=== PATIENT | female | born 1980 | race Caucasian/White ===

== ENCOUNTER 2023-04-09 12:43 | Outpatient (REF) | payer MEDICARE, OTHER, SELFPAY ==
[2023-04-09 14:17] LABS: Abs Immature Grans 0.07 10^3/uL (0.0-0.06); Absolute Basophil Count 0.09 10^3/uL (0.0-0.2); Absolute Lymphocyte Count 2.28 10^3/uL (1.2-3.4); Basophils % 0.7; Eosinophils % 1.5; HCT 44.6 % (36.0-46.0); HGB 14.2 g/dL (11.2-15.7); Immature Grans % 0.6; Lymphocytes % 18.6; MCH 28.3 pg (27.0-33.0); MCHC 31.8 % (32.0-36.0); MCV 89 fL (80-95); MPV 11.2 fL (8.0-11.0); Neutrophils % 72.6; Platelet Count 303 10^3/uL (130-400); RBC 5.01 10^6/uL (3.93-5.22); RDW 13.6 % (11.7-14.6); RDW-SD 44.6 fL; WBC 12.26 10^3/uL (4.4-10.8)
[2023-04-09 14:20] LABS: Absolute Eosinophil Count 0.18 10^3/uL (0.0-0.7); Absolute Monocyte Count 0.74 10^3/uL (0.1-0.8)
[2023-04-10 08:13] LABS: IgE 10 IU/mL (<158)
[2023-04-13 23:19] LABS: Cat Epithelium IgE 4.87 kU/L (<0.70); Cockroach IgE 0.13 kU/L (<0.70); Dog Dander IgE 0.38 kU/L (<0.70); House Dust/Greer Lab, IgE 1.73 kU/L (<0.70)
[2023-04-15 08:27] LABS: Alter tenuis/alternata IgG 2.1 mcg/mL (<12.0); Aspergillus fumigatus IgG 4.6 mcg/mL (<46.0); Aureobasidium pullulans IgG <2.0 mcg/mL (<18.0); CLASS 0; Laceyella sacchari IgG 7.5 mcg/mL (<25.0); Micropolyspora faeni IgG <2.0 mcg/mL (<5.0); Parrot Australian Feathers IgE <0.10 kU/L (<0.35); Penicillium Chrysogenum IgG 3.4 mcg/mL (<22.0); Phoma betae IgG <2.0 mcg/mL (<8.0)
== END 2023-04-09 12:44 | disposition home or self-care (01) ==
LOC: LBN 12:43
PROVIDERS: PCP Physician Assistant Medical; Visit Provider Student in an Organized Health Care Education/Training Program
DX: J45.909 Unspecified asthma, uncomplicated (principal); Z01.82 Encounter for allergy testing
CPT/HCPCS: 36415; 86001; 82785; 85025; 86003; 86787

== ENCOUNTER 2023-04-28 06:12 | Day surgery (SDC) | payer MEDICARE, OTHER, SELFPAY ==
[2023-04-28] VITALS (9 sets, daily range): BP systolic 131–145; BP diastolic 52–93; PULSE 85–99; RESP 16–20; TEMP 36.4–36.7; O2SAT 98–100; BMI 31.4
[2023-04-28] MEDS: Lactated Ringers 1,000 ML 80 ML IV (06:54)
--- NOTE | 2023-04-28 07:03 | W.ANESPRE ---
General Info Date of Service Date Performed: 04/28/23 Height: 5 ft Weight: 73 kg Body Mass Index (BMI): 31.4 Surgical Procedure: Operation Date: 04/28/23 07:40 Proposed Procedure Side Surgeon p Bronchoscopy w/KHAI Guadalupe MD Meds Allergies and Home Medications Allergies Allergy/AdvReac Type Severity Reaction Status Date / Time animal dander Allergy Verified 04/28/23 06:27 house dust Allergy Verified 04/28/23 06:27 phenazopyridine Allergy Verified 04/28/23 06:27 sulfa drugs AdvReac Unknown nausea and Uncoded 04/28/23 06:27 vomiting Home Medication Medication Instructions Recorded aspirin 81 mg capsule 81 mg PO Q4H 12/10/22 bupropion HCl 300 mg 24 hr tablet, 300 mg PO DAILY 12/10/22 extended release (Wellbutrin XL) ferrous sulfate 325 mg (65 mg 325 mg PO DAILY 12/10/22 iron) tablet ibuprofen 200 mg tablet 200 mg PO Q6H PRN 12/10/22 lamotrigine 25 mg tablet (Lamictal) 50 mg PO DAILY 12/10/22 multivit with min-folic acid 1 tab PO DAILY 12/10/22 [Adult One Daily Multivitamin] ondansetron 8 mg disintegrating 8 mg PO DAILY 12/10/22 tablet pyridoxine (vitamin B6) 100 mg 100 mg PO DIRECTED 12/10/22 tablet (Vitamin B-6) sertraline 100 mg tablet 100 mg PO DAILY 12/10/22 fluticasone propionate 50 2 spray intranasal DAILY 30 days 12/23/22 mcg/actuation nasal #16 grams spray,suspension (Flonase Allergy Relief) celecoxib 400 mg capsule (Celebrex) 400 mg PO DAILY 03/17/23 clotrimazole 1 % topical cream 1 applic topical TID 03/17/23 metoprolol succinate 25 mg 25 mg PO DIRECTED 03/17/23 tablet,extended release 24 hr albuterol sulfate 90 mcg/actuation 2 puff inhalation Q4H PRN 04/09/23 aerosol inhaler (ProAir HFA) shortness of breath or wheezing #8.5 grams fluticasone propionate 230 2 puff inhalation BID #12 grams 04/09/23 mcg-salmeterol 21 mcg/actuation HFA inhaler (Advair HFA) Current Visit Medications: Current Medications Generic Name Dose Route Start Last Admin Trade Name Freq PRN Reason Stop Dose Admin Albuterol/Ipratropium 3 ml 04/28/23 06:42 Albuterol/Ipratropium 3 Ml Upd Vial UPD 05/28/23 06:41 Q2H PRN PRN Ringer's Solution 1,000 mls @ 80 mls/hr 04/28/23 06:00 04/28/23 06:54 IV 05/27/23 23:59 80 mls/hr INFUSION SARA Administration IV Miscellaneous Supplies 1 each 04/28/23 06:00 Iv Access IV 05/27/23 23:59 DIRECTED SARA Sodium Chloride 0 ml 04/28/23 06:00 Normal Saline Flush 10 Ml Syr IV 05/27/23 23:59 PRN PRN Sodium Chloride 0 ml 04/28/23 06:00 Normal Saline 10 Ml Vial IJ 05/27/23 23:59 DIRECTED PRN Sterile Water 0 ml 04/28/23 06:00 Water,Injection,Sterile 10 Ml Vial IJ 05/27/23 23:59 DIRECTED PRN PFSH Active Problems Active Problems: Problem Status Onset Code Asthma J45.909 Sinusitis J32.9 Chronic interstitial cystitis N30.10 GERD (gastroesophageal reflux disease) K21.9 Hypercholesterolemia E78.00 Hyperhidrosis R61 Mixed anxiety and depressive disorder F41.8 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 Spinal cord stimulator status Z96.89 Pulmonary nodule R91.1 Hemoptysis R04.2 Medical History Medical History Antinuclear factor positive Bipolar disorder Family history of alpha 1 antitrypsin deficiency Female bladder prolapse History of bulimia nervosa Left ankle pain Non-smoker Obesity Prolapse, intestine Rectal prolapse Restless legs Severe anxiety with panic Vaginal prolapse Surgical History Surgical History H/O laparoscopy History of abdominoplasty History of ankle surgery x3 History of bladder surgery Bladder stimulator in situ History of breast lift History of section History of cholecystectomy History of dilatation and curettage x3 History of hysterectomy History of nasal septoplasty History of right hip replacement Tobacco Smoking/Tobacco Use Status: Never Alcohol Alcohol Intake: current Alcohol intake frequency: holidays/special occasions only Substance Use Substance use: Never Substance use type: does not use Vital Signs and Lab Results Vital Signs Most Recent Vital Signs in EMR: Most Recent Vital Signs Temp Pulse Resp BP Pulse Ox 36.6 C 85 18 135/93 H 98 04/28/23 06:15 04/28/23 06:15 04/28/23 06:15 04/28/23 06:15 04/28/23 06:15 Lab Results Blood Type / Crossmatch: No Data to Display Complete Blood Count: White Blood Count 12.26 10^3/uL (4.4-10.8) H 04/09/23 11:20 Red Blood Count 5.01 10^6/uL (3.93-5.22) 04/09/23 11:20 Hemoglobin 14.2 g/dL (11.2-15.7) 04/09/23 11:20 Hematocrit 44.6 % (36.0-46.0) 04/09/23 11:20 Platelet Count 303 10^3/uL (130-400) 04/09/23 11:20 Complete Metabolic Panel: No Data to Display Liver Function Panel: No Data to Display Coagulation Panel: No Data to Display Cardiac Panel: No Data to Display Arterial Blood Gas: No Data to Display Venous Blood Gas: No Data to Display Pancreas Panel: No Data to Display Thyroid Panel: No Data to Display Infectious Disease: No Data to Display Blood Cultures: No Data to Display Toxicology Panel: No Data to Display Panel: No Data to Display Anesthesia Assessment and Plan Anesthesia History Personal History: No History of Anesthesia Complications Family History: No Family History of Anesthesia Complications Exercise Tolerance Exercise Tolerance: Metabolic Equivalents>4 Pertinent Negatives Pertinent Negatives: No Symptoms of GERD (current nausea), No Major Cardiovascular Symptoms or Complaints, No Major Pulmonary Symptoms or Complaints (Hemoptysis) and No History of CVA/TIA Cardiac & Pulmonary Exam Cardiac Exam: Normal S1/S2 Heart Sounds Pulmonary Exam: Clear Bilateral Breath Sounds Implantable Cardiac Device Does patient have a Pacemaker or an ICD?: No Airway Exam Known Difficult Airway: No Mallampati Class: 2 Mouth Opening: Normal (> 3cm) Thyromental Distance: Greater than 3 cm Neck Range of Motion: Full ROM Neck Circumference: Normal Teeth Condition: Normal Dentition ASA Classification ASA Score: ASA 2 Emergency Case?: No NPO Status NPO Status: NPO Clears >2 hours, Solids >8 hours Status Status: Negative HCG Anesthesia Plan Resuscitation Status: Full Code Anesthesia Technique: General Anesthesia Airway Planned: Endotracheal Tube Monitors Used: Standard Monitors
[2023-04-28] MEDS: Lidocaine 1% Multi-Dose 10 ML VIAL (07:44)
--- NOTE | 2023-04-28 07:46 | PAPNONF_PTH ---
PATIENT: Cassia Baez LOC: [facility] U#:[id number] AGE/SX: 43/F ROOM: RE04/28/[address]: Cari Guadalupe MD : 1980 BED: DIS: 04/28/2023 SPEC #: [id number] RECD: 04/28/23 13:03 STATUS: ABDULKADIR REQ #: [id number] MORENO: 04/28/23 07:[address]: Cari Guadalupe DEPT: [facility] Cytology RECD BY: Suzanne Maldonado ENTERED: 04/28/23 13:03 SP TYPE: PAPJOSEF BELTRAN DR: Dulce Bowman Tissues: 1 - BODY FLUID CYTO(NOT S/U/N/EM)[facility] Procedures: BODY FLUID CYTO(NOT SPU/UR/NIP/ENDOM)[facility] Comments: [id number] (REFRIGERATED)
[2023-04-28] MEDS: Albuterol/Ipratropium 3 ML UPD VIAL UPD (08:20)
--- NOTE | 2023-04-28 08:53 | W.ANESPOSTOP ---
Postoperative Evaluation Date, Time and Location Date Performed: 04/28/23 Time Performed: 08:53 Patient Location: PACU Vital Signs Most Recent Imported Vital Signs: Most Recent Vital Signs Temp Pulse Resp BP Pulse Ox 36.7 C 96 H 16 131/88 98 04/28/23 08:41 04/28/23 08:41 04/28/23 08:41 04/28/23 08:41 04/28/23 08:41 Assessment Mental Status: Awake (Alert & Oriented to Patient Baseline) Airway and Respiratory Function: Patent airway with normal (patient baseline) respiratory exam Cardiovascular Function: Hemodynamically Stable Hydration Status: Adequately Hydrated Nausea & Vomiting: No Nausea or Vomiting Pain: Pain is tolerable per patient Peripheral Nerve Block: Patient did not receive a nerve block
--- NOTE | 2023-04-28 09:20 | W.PM.OP ---
Date of service: 04/28/23 Time of Service: 07:30 Operative Note Operative Note PRE-OP DIAGNOSIS: Hemoptysis POST-OP DIAGNOSIS: other (Normal airway exam) Refer to Anesthesia Record Procedure Description: Bronchoscopy Indication:[Hemoptysis Procedure performed: Flexible bronchoscopy with BAL Sedation plan: General anesthesia Informed consent was obtained after the risks and benefits or the procedure were discussed. Anesthesia sedated and intubated the patient. A proper and complete OR compliant time out was performed. The therapeutic 6.2mm Olympus bronchoscope was inserted into the airways, where 3cc in total of 1% topical lidocaine was used the anesthetize the airways. The trachea was midline and without lesion or injury. The mucosa appeared normal but with some diverticuli and there were no signs of tracheomalacia. The kelechi was sharp. All bronchial subsegments were visualized within each lobe and showed a minimal degree of clear to white, easy to suction secretions. It was noted throughout the airway exam that her mucosa was very friable and easy to begin bleeding. A bronchoalveolar lavage was performed in the [place]. A total of 120cc of saline was administered with a return of 35cc. The fluid was slightly cloudy in appearance. The bronchoscope was then removed and the case terminated. The patient was taken to PACU in stable condition. Samples collected:[place] BAL, bronchial washing Testing ordered:cell diff, cytopathology, viral respiratory panel, AFB, fungal and bacterial cultures Complications:None Cari Guadalupe MD Pulmonary & Critical Care Medicine
[2023-04-28 22:46] LABS: Adenovirus DNA Result Negative (Negative); Metapneumovirus RNA Result Negative (Negative); Parainfluenza Type1 RNA Result Negative (Negative); Parainfluenza Type2 RNA Result Negative (Negative); Parainfluenza Type3 RNA Result Negative (Negative); Parainfluenza Type4 RNA Result Negative (Negative); Rhinovirus RNA Result Negative (Negative)
[2023-04-29 09:54] LABS: Lymphocytes Fluid Relative 26 %; Mono/Macrophage Fluid Relative 73 %; Neutrophils Fluid Relative 1 %
[2023-05-26 09:00] LABS: Fungus Smear No Fungi Seen
== END 2023-04-28 09:45 | disposition home or self-care (01) ==
PROVIDERS: PCP Physician Assistant Medical; Visit Provider Student in an Organized Health Care Education/Training Program
PROC: 0BJ08ZZ Inspection of Tracheobronchial Tree, Via Natural or Artificial Opening Endoscopic (ICD-10-PCS; CPT 31622; principal; 2023-04-28 07:30)
DX: R04.2 Hemoptysis (principal); J45.909 Unspecified asthma, uncomplicated; K21.9 Gastro-esophageal reflux disease without esophagitis; E78.00 Pure hypercholesterolemia, unspecified; Z79.899 Other long term (current) drug therapy
CPT/HCPCS: 31624; 80162; 87070; 87102; 87116; 87205; 87206; 87632; 88104; J1100; J2250; J2405; J7620

== ENCOUNTER → 2023-12-11 10:01 | Outpatient (BNVA) | payer MEDICARE, OTHER, SELFPAY | PROVIDERS: PCP Physician Assistant Medical; Referring Provider Physician Assistant Medical; Visit Provider Student in an Organized Health Care Education/Training Program | DX: J45.909 Unspecified asthma, uncomplicated (principal) | CPT/HCPCS: 99214 ==

== ENCOUNTER → 2024-06-06 12:59 | Outpatient (BNVA) | payer MEDICARE, OTHER, SELFPAY | PROVIDERS: PCP Physician Assistant Medical; Referring Provider Physician Assistant Medical | DX: M70.61 Trochanteric bursitis, right hip (principal); Z96.641 Presence of right artificial hip joint; G89.29 Other chronic pain | CPT/HCPCS: 99213 ==

== ENCOUNTER → 2024-06-13 02:19 | Outpatient (CLI) | payer MEDICARE, OTHER, SELFPAY ==
--- NOTE | 2024-06-13 08:20 | DI.CT_ITS ---
Exam(s) CT LOWER EXTREMITY RT WO EXAM: CT LOWER EXTREMITY RT WO CLINICAL HISTORY: PAIN, ?LOOSENING rt hip replacement,m25.551,z96.641. TECHNIQUE: Imaging Protocol: Axial computed tomography images with coronal and sagittal reformatted images were created and reviewed. CONTRAST MATERIAL: Intravenous: None COMPARISON: CR XR HIP MIN 2V RT from 04/30/2024 FINDINGS: Bones: Components of the prosthesis appeared satisfactory. No evidence of obvious loosening. Slight irregularity at the most superior aspect of the greater trochanter noted. No acute fractures eviden t. No evidence of osteomyelitis. There is no abnormal fluid collection in the musculature surroundi ng the hip. Right sacroiliac joint appears unremarkable. Subcutaneous right buttock stimulator noted. IMPRESSION: No obvious loosening of the right hip prosthesis. RADIATION DOSE DELIVERED: Total DLP DATA REPOSITORY: All CT scans at this facility are submitted to the National Radiology Data Registry (NRDR) Dose Index Registry (DIR) with the [employer] ([employer]). RADIATION OPTIMIZATION: All CT scans at this facility use at least one of these dose optimization te chniques: automated exposure control; mA and/or kV adjustment per patient size (includes targeted exa ms where dose is matched to clinical indication); or iterative reconstruction.
== END ==
PROVIDERS: PCP Physician Assistant Medical; Visit Provider Student in an Organized Health Care Education/Training Program
DX: M25.551 Pain in right hip (principal); G89.29 Other chronic pain; Z96.641 Presence of right artificial hip joint
CPT/HCPCS: 73700

== ENCOUNTER 2024-06-27 02:58 | Outpatient (CLI) | payer MEDICARE, OTHER, SELFPAY ==
--- NOTE | 2024-06-27 05:45 | DI.NM_ITS ---
Exam(s) NM BONE SCAN 3 PHASE EXAM: NM BONE SCAN 3 PHASE CLINICAL HISTORY: PAIN, ?LOOSENING prosthetic device,m25.551,z96.641. TECHNIQUE: Injected Dose: 25 mCi Tc-99m MDP COMPARISON: CR XR HIP MIN 2V RT from 04/30/[address] LOWER EXTREMITY RT WO from 06/13/2024 FINDINGS: Perfusion: Symmetric. Blood Pool: Minimally increased activity around the right hip. Delayed: No focal area of intense suspicious uptake is seen. Photopenic area in the proximal right femur consistent with prosthesis. No abnormal uptake surrounding the prosthesis. Increased activity in the left foot, both AC joints as well as cervical spine, presumably related to degenerative pollard es. IMPRESSION: 1. No evidence of loosening of the right hip prosthesis. DATA REPOSITORY:
== END 2024-06-27 03:18 ==
LOC: DI 02:58
PROVIDERS: PCP Physician Assistant Medical; Visit Provider Student in an Organized Health Care Education/Training Program
DX: M25.551 Pain in right hip (principal); Z96.641 Presence of right artificial hip joint
CPT/HCPCS: 78315

== ENCOUNTER 2024-06-27 04:13 | Outpatient (CLI) | payer MEDICARE, OTHER, SELFPAY ==
[2024-06-27 09:47] LABS: ESR 5 mm/hr (0-20)
[2024-06-27 10:24] LABS: C-Reactive Protein < 0.50 mg/dL (<or=0.5)
== END 2024-06-27 04:14 | disposition home or self-care (01) ==
PROVIDERS: PCP Physician Assistant Medical; Visit Provider Student in an Organized Health Care Education/Training Program
DX: M25.551 Pain in right hip (principal); G89.29 Other chronic pain; Z96.641 Presence of right artificial hip joint
CPT/HCPCS: 36415; 85652; 78315; 86140

== ENCOUNTER → 2024-07-07 10:34 | Outpatient (BNVA) | payer MEDICARE, OTHER, SELFPAY | PROVIDERS: PCP Physician Assistant Medical; Referring Provider Physician Assistant Medical; Visit Provider Student in an Organized Health Care Education/Training Program | DX: M70.61 Trochanteric bursitis, right hip (principal); Z96.641 Presence of right artificial hip joint; G89.29 Other chronic pain | CPT/HCPCS: 20550; J1010 ==

== ENCOUNTER → 2024-08-03 13:47 | Outpatient (BNVA) | payer MEDICARE, OTHER, SELFPAY | PROVIDERS: PCP Physician Assistant Medical; Referring Provider Physician Assistant Medical; Visit Provider Student in an Organized Health Care Education/Training Program | DX: M76.31 Iliotibial band syndrome, right leg (principal); M70.61 Trochanteric bursitis, right hip; G89.29 Other chronic pain; Z96.641 Presence of right artificial hip joint | CPT/HCPCS: 36415; 99214 ==

== ENCOUNTER → 2024-08-03 14:56 | Outpatient (BNVA) | payer MEDICARE, OTHER, SELFPAY | PROVIDERS: PCP Physician Assistant Medical; Referring Provider Physician Assistant Medical; Visit Provider Physician Assistant Surgical | DX: J45.909 Unspecified asthma, uncomplicated (principal) | CPT/HCPCS: 36415; 99214 ==

== ENCOUNTER 2024-08-03 16:21 | Outpatient (REF) | payer MEDICARE, OTHER, SELFPAY ==
[2024-08-03 18:08] LABS: Abs Immature Grans 0.03 10^3/uL (0.0-0.06); Absolute Basophil Count 0.05 10^3/uL (0.0-0.2); Absolute Eosinophil Count 0.25 10^3/uL (0.0-0.7); Absolute Lymphocyte Count 2.01 10^3/uL (1.2-3.4); Absolute Monocyte Count 0.53 10^3/uL (0.1-0.8); Absolute Neutrophil Count 5.33 10^3/uL (1.2-6.7); Basophils % 0.6 %; HCT 45.8 % (36.0-46.0); HGB 14.3 g/dL (11.2-15.7); Immature Grans % 0.4 %; Lymphocytes % 24.5 %; MCHC 31.2 % (32.0-36.0); MCV 93 fL (80-95); MPV 11.4 fL (8.0-11.0); Monocytes % 6.5 %; Platelet Count 273 10^3/uL (130-400); RBC 4.93 10^6/uL (3.93-5.22); RDW 13.2 % (11.7-14.6); RDW-SD 45.1 fL
== END 2024-08-03 16:22 | disposition home or self-care (01) ==
LOC: LBN 16:21
PROVIDERS: PCP Physician Assistant Medical; Visit Provider Physician Assistant Surgical
DX: J45.909 Unspecified asthma, uncomplicated (principal); M25.551 Pain in right hip; G89.29 Other chronic pain; Z96.641 Presence of right artificial hip joint; M70.61 Trochanteric bursitis, right hip; M76.31 Iliotibial band syndrome, right leg
CPT/HCPCS: 85025

== ENCOUNTER → 2024-08-15 08:44 | Outpatient (BNVA) | payer MEDICARE, OTHER, SELFPAY | PROVIDERS: PCP Physician Assistant Medical; Referring Provider Physician Assistant Medical; Visit Provider Student in an Organized Health Care Education/Training Program | DX: Z96.641 Presence of right artificial hip joint (principal); G89.29 Other chronic pain; M76.31 Iliotibial band syndrome, right leg | CPT/HCPCS: 20611; J1010 ==

== ENCOUNTER 2024-08-19 03:03 | Outpatient (CLI) | payer MEDICARE, OTHER, SELFPAY ==
[2024-08-19] MEDS: Albuterol HFA 18 GM 200 PUFF INH IH (14:07)
[2024-08-19] MEDS: Inhaler, Assist Device 1 EACH MC (14:07)
[2024-08-19] MEDS: Methacholine 100 MG VIAL IH (14:07)
--- NOTE | 2024-08-23 10:53 | PFT_ITS ---
Date of service: 08/19/24 Time of Service: 11:02 Pulmonary Function Test Result Indications: Alpha 1 carrier Interpretation Spirometry: There is no baseline airflow limitation. There was a 26% decrease with admini stration of 4.0 mg/mL methacholine. Lung Volumes: There is air trapping. Diffusion Capacity: Mildly reduced diffusion Airway Pressure: Normal airways resistance. Impression Baseline air trapping and a slightly reduced diffusion. There is a positive methacholine challenge. Clinical Correlation therefore is recommended.
== END 2024-08-19 03:04 | disposition home or self-care (01) ==
LOC: RT 03:04
PROVIDERS: PCP Physician Assistant Medical; Visit Provider Student in an Organized Health Care Education/Training Program
DX: J45.909 Unspecified asthma, uncomplicated (principal); Z14.8 Genetic carrier of other disease
CPT/HCPCS: 94060; 94070; 94726; 94729; 94010; J7674

== ENCOUNTER 2024-09-01 08:51 | Day surgery (SDC) | payer MEDICARE, OTHER, SELFPAY ==
[2024-09-01] VITALS (28 sets, daily range): BP systolic 128–156; BP diastolic 71–118; PULSE 57–83; RESP 9–19; TEMP 36–36.5; O2SAT 94–100; BMI 31.8
--- NOTE | 2024-09-01 07:13 | ROE_ITS ---
Date of service: 09/01/24 Time of Service: 14:00 Operative Note Operative Note DATE OF PROCEDURE: 09/01/24 PRE-OP DIAGNOSIS: Right hip 1. Iliotibial band snapping 2. Trochanteric bursitis 3. Possible gluteal tendon tear POST-OP DIAGNOSIS: same PROCEDURE: Right hip endoscopic 1. Iiliotibial band release, CPT# 70225 2. Trochanteric bursectomy, CPT# 49450 3. Deep hardware removal, permanant knot stack greater trochanter, CPT# 69070 SURGEON: Rafael Duarte REGISTERED DENTAL ASSISTANT: Wilbur Polanco ANESTHESIA TYPE: Local By Surgeon and General LMA/ETT Refer to Anesthesia Record ESTIMATED BLOOD LOSS: 5 COMPLICATIONS: None Patient was transported to: PACU Patient's condition: stable Indications: Please see complete medical record for details. Findings: Thickened iliotibial band, abundant trochanteric bursitis. Very prominent posterior lateral greater trochanter permanent FiberWire type not stacked throu gh bone tunnels in the greater trochanter likely from prior external rotator repair after hip replacement surgery which seem to be engaging posterior laterally on scar tissue and posterior margin iliotibial band. Procedure Description: In the operating room, general anesthesia was induced. The patient was positioned supine on the [place] operating room table. All bony prominences were well-padded. Preoperative antibiotics were administered. The hip was prepped and draped in the usual sterile fashion. The correct patient, procedure, and side of the procedure were all verified prior to incision. 30 cc of 0.25% bupivacaine containing epinephrine was infiltrated about the subcutaneous tissues for the planned anterior lateral and distal anterolateral portals as well as deeply over the greater trochanter. A knife was used to incise the skin for the anterior lateral and distal anterolateral portals followed by blunt dissection subcutaneously. Under fluoroscopic guidance, a switching stick and arthroscope were inserted localizing the iliotibial band over the greater trochanter. Blunt dissection and the mechanical shaver were used to resect fat and overlying tissue about the center of the iliotibial band and carefully expose the anterior and posterior margins. Once there was adequate exposure of the IT band, the greater trochanter was again localized under fluoroscopic guidance with a spinal needle inserted through the skin down to bone. This central area was marked using the radiofrequency ablator. A [place] blade was brought in and used to create a 2 cm longitudinal incision in line with the IT band fibers as well as extending it in a cruciate fashion with 2 cm incisions anteriorly and posteriorly. The radiofrequency ablator was used to achieve hemostasis. The mechanical shaver was then used to debride the IT band released edges exposing the trochanteric bursa. The mechanical shaver was then used to excise the trochanteric bursa taking care to protect musculature about the margins of the greater trochanter as well as neurovascular structures especially posteriorly. There was excellent visualization of the vastus lateralis as well as gluteus medius confirming appropriate bursa excision. The hip was brought through range of motion including internal and external rotation and there was no impinging iliotibial band tissue or remaining pathologic bursa. The viewing and working portals were switched and appropriately while IT band release, trochanteric bursa excision, and hemostasis confirmed. There was an obvious thickening posterior lateral margin of the greater trochanter with a very prominent double type permanent suture knot stacks. It was firmly adherent to bone tunnels. It was able to be amputated and removed in entirety using pituitary rongeur's. The abductor and external rotator repair was largely intact. There was mild fraying superficially about this repair more proximally centrally. No significant gluteal medius or minimus tearing. Additional debridement was carried posterior laterally and the corresponding impinging area of the thickening along the margin of the iliotibial band and scar tissue in the peritrochanteric space. The hip was rotated again, adducted, and no mechanical impingement could be detected. Suction was used to remove fluid from the endoscopic space. The portals were closed using 3-0 Monocryl in a buried fashion. Steri-Strips were applied over the incisions followed by Xeroform, 4 x 4 gauze, an ABD pad, and secured with tape. The patient awoke from anesthesia without complication and was transferred to the recovery room in a stable condition.
--- NOTE | 2024-09-01 07:16 | PDOC.DSDIS_ITS ---
Date of service: 09/01/24 Time of Service: 15:00 Discharge Plan Disposition Patient Disposition: Home Condition: Stable Discharge Details Attending Provider: Rafael Duarte Primary Care Provider: Dulce Bowman Home Meds and New Rx's Prescriptions: New naproxen 250 mg tablet 250 - 500 mg PO BID PRN (Reason: Moderate pain) Qty: 40 0RF aspirin 81 mg tablet,delayed release (DR/EC) 81 mg PO DAILY 14 Days Qty: 14 0RF oxycodone 5 mg tablet 5 - 10 mg PO Q4H PRN (Reason: Moderate to severe pain) Qty: 18 0RF Continued fluticasone propionate [Flonase Allergy Relief] 50 mcg/actuation spray,suspension 2 spray intranasal DAILY 30 Days Qty: 16 3RF Rx Instructions: administer into each nostril fluticasone propion-salmeterol [Advair HFA] 230-21 mcg/actuation HFA aerosol inhaler 2 puff inhalation BID Qty: 12 12RF albuterol sulfate [ProAir HFA] 90 mcg/actuation HFA aerosol inhaler 2 puff inhalation Q4H PRN (Reason: shortness of breath or wheezing) Qty: 8.5 12RF Dupixent Pen 300 mg/2 mL pen injector 600 mg subcut ONCE Qty: 4 0RF Patient Comments: 09/01/24: pt has not started using this med. FFrancoisS RN Rx Instructions: as a single dose Dupixent Pen 300 mg/2 mL pen injector 300 mg subcut Q2W Qty: 4 11RF Patient Comments: 09/01/24: pt has not started using this med. F.S RN mirabegron [Myrbetriq] 25 mg tablet extended release 24 hr 25 mg PO DAILY acyclovir 400 mg tablet 400 mg PO BID methenamine hippurate [Hiprex] 1 gram tablet 1 g PO BID omeprazole 40 mg capsule,delayed release(DR/EC) 40 mg PO DAILY bupropion HCl [Wellbutrin XL] 300 mg tablet extended release 24 hr 300 mg PO DAILY ibuprofen 200 mg tablet 200 mg PO Q6H PRN lamotrigine [Lamictal] 25 mg tablet 50 mg PO DAILY ondansetron 8 mg tablet,disintegrating 8 mg PO DAILY sertraline 100 mg tablet 100 mg PO DAILY clotrimazole 1 % cream 1 applic topical TID metoprolol succinate 25 mg tablet extended release 24 hr 25 mg PO DIRECTED ropinirole 8 mg tablet extended release 24 hr 8 mg PO DAILY Discharge Instructions Additional Instructions: Surgery: Right hip endoscopy with iliotibial band release, trochanteric bursectomy, and prominent knot stack removal Activity: Weightbearing as tolerated. May use crutches or walker as needed for a few days. Gradually advance to full range of motion and activity over the next few weeks. A physical therapy prescription will be provided separately in the office at follow up if needed. Prescriptions: Aspirin 81 mg take 1 daily to prevent a blood clot for 2 weeks, starting tomorrow morning Naproxen 250 mg take 1-2 every 12 hours with a meal as needed for moderate pain Oxycodone 5 mg take 1-2 every 4-6 hours as needed for severe pain You may use qvan-gwy-ctzkwly Tylenol (acetaminophen) as needed for mild pain. These pain medications may be taken all at once or in different combinations as needed. Also, recommend Colace (docusate) as a stool softener as surgery and pain medicine cause constipation. You may try [id number] diphenhydramine (Benadryl) 25-50 mg nightly as a sleep aid Dressings: Leave dressing in place for 3 days. May then remove and leave open to air or cover incisions with Band-Aids. Leave the sticky Steri-Strips in place until they fall off or remove them after you shower. May shower after 5 days. Follow-up: 10-[address] Duarte You may take off the leg compression stockings this evening at home. You may also leave them on a few days longer if you have a history of leg swelling or edema. Let us know right away if you develop any redness, drainage, fevers, chest pain, or trouble breathing. Do not drink alcohol or drive for at least 24 hours after anesthesia. Please call the office during business hours with any questions or concerns. Stand Alone Forms: Anesthesia Discharge Inst., Ijeoma Cerrato ([facility]) Referrals: Rafael Duarte MD [ [facility] STAFF PHYSICIAN] - 09/14/24 1:30 pm Discharge Orders Discharge Orders: Discharge Order (Routine); Ordered 09/01/24 Ordered By: Wilbur Polanco DS: Diagnosis Discharge Diagnosis (1) Iliotibial band syndrome of right side: Status: Acute (2) Trochanteric bursitis, right hip: Status: Acute
[2024-09-01] MEDS: Lactated Ringers 1,000 ML 30 ML IV (10:07)
[2024-09-01] MEDS: Ondansetron 4 MG/2 ML VIAL IVP (11:35)
--- NOTE | 2024-09-01 13:34 | W.ANESPRE ---
General Info Date of Service Date Performed: 09/01/24 Height: 5 ft Weight: 73.9 kg Body Mass Index (BMI): 31.8 Surgical Procedure: Operation Date: 09/01/24 11:35 Proposed Procedure Side Surgeon p Endoscopic Iliotibial Band Release w/Trochanteric Bursectomy, Possible Gluteal Tendon Repair Right Rafael Duarte MD Actual Procedure Side Surgeon p Endoscopic Iliotibial Band Release w/Trochanteric Bursectomy, Possible Gluteal Tendon Repair Right Rafael Duarte MD Pre-Op Diagnosis Post-Op Diagnosis Iliotibial band syndrome of right side Meds Allergies and Home Medications Allergies Allergy/AdvReac Type Severity Reaction Status Date / Time animal dander Allergy Other (See Verified 09/01/24 09:50 Comment) house dust Allergy Other (See Verified 09/01/24 09:50 Comment) phenazopyridine Allergy Other (See Verified 09/01/24 09:50 Comment) sulfa drugs AdvReac Unknown nausea and Uncoded 09/01/24 09:50 vomiting Home Medication ?Medication ?Instructions ?Recorded bupropion HCl 300 mg 24 hr tablet, 300 mg PO DAILY 12/10/22 extended release (Wellbutrin XL) ibuprofen 200 mg tablet 200 mg PO Q6H PRN 12/10/22 lamotrigine 25 mg tablet (Lamictal) 50 mg PO DAILY 12/10/22 ondansetron 8 mg disintegrating 8 mg PO DAILY 12/10/22 tablet sertraline 100 mg tablet 100 mg PO DAILY 12/10/22 fluticasone propionate 50 2 spray intranasal DAILY 30 days 12/23/22 mcg/actuation nasal #16 grams spray,suspension (Flonase Allergy Relief) clotrimazole 1 % topical cream 1 applic topical TID 03/17/23 metoprolol succinate 25 mg 25 mg PO DIRECTED 03/17/23 tablet,extended release 24 hr albuterol sulfate 90 mcg/actuation 2 puff inhalation Q4H PRN 04/09/23 aerosol inhaler (ProAir HFA) shortness of breath or wheezing #8.5 grams fluticasone propionate 230 2 puff inhalation BID #12 grams 04/09/23 mcg-salmeterol 21 mcg/actuation HFA inhaler (Advair HFA) acyclovir 400 mg tablet 400 mg PO BID 07/07/24 methenamine hippurate 1 gram 1 g PO BID 07/07/24 tablet (Hiprex) mirabegron 25 mg tablet,extended 25 mg PO DAILY 07/07/24 release 24 hr (Myrbetriq) omeprazole 40 mg capsule,delayed 40 mg PO DAILY 07/07/24 release dupilumab 300 mg/2 mL subcutaneous 300 mg (2 mL) subcut Q2W #4 mL 08/04/24 pen injector (Dupixent) dupilumab 300 mg/2 mL subcutaneous 600 mg (4 mL) subcut ONCE #4 mL 08/04/24 pen injector (Dupixent) aspirin 81 mg tablet,delayed 81 mg PO DAILY Prevent blood clot 09/01/24 release 14 days #14 tabs naproxen 250 mg tablet 250 - 500 mg (1 - 2 x 250 mg) PO 09/01/24 BID PRN Moderate pain #40 tabs oxycodone 5 mg tablet 5 - 10 mg (1 - 2 x 5 mg) PO Q4H 09/01/24 PRN Moderate to severe pain #18 tabs ropinirole 8 mg tablet,extended 8 mg PO DAILY 09/01/24 release 24 hr Current Visit Medications: Current Medications Generic Name Dose Route Start Last Admin Trade Name Freq PRN Reason Stop Dose Admin Ringer's Solution 1,000 mls @ 30 mls/hr 09/01/24 06:00 09/01/24 10:07 IV 09/01/24 23:59 30 mls/hr INFUSION SARA Administration Cefazolin Sodium/Dextrose 2 gm in 50 mls @ 100 mls/hr 09/01/24 06:00 Ancef Duplex IVPB 09/01/24 23:59 PREOP SARA Tranexamic Acid/Sodium Chloride 1,000 mg in 100 mls @ 600 mls/hr 09/01/24 06:00 IVPB 09/01/24 23:59 PREOP SARA IV Miscellaneous Supplies 1 each 09/01/24 06:00 Iv Access IV 09/01/24 23:59 DIRECTED SARA Oxycodone HCl 0 mg 09/01/24 07:15 Oxycodone 5 Mg Tab PO 10/01/24 07:14 Q3H PRN PRN Pain Sodium Chloride 0 ml 09/01/24 06:00 Normal Saline Flush 10 Ml Syr IV 09/01/24 23:59 PRN PRN Sodium Chloride 0 ml 09/01/24 06:00 Normal Saline 10 Ml Vial IJ 09/01/24 23:59 DIRECTED PRN Sterile Water 0 ml 09/01/24 06:00 Water,Injection,Sterile 10 Ml Vial IJ 09/01/24 23:59 DIRECTED PRN PFSH Active Problems Active Problems: Problem Status Onset Code Iliotibial band syndrome of right side Acute M76.31 Trochanteric bursitis, right hip Acute M70.61 Chronic hip pain after total replacement of right hip joint Acute M25.551, G89.29, Z96.641 Alpha 1-antitrypsin PiMS phenotype Acute Z14.8 Hemoptysis Acute R04.2 Pulmonary nodule Acute R91.1 Spinal cord stimulator status Acute Z96.89 TMJ syndrome Acute M26.629 Mixed anxiety and depressive disorder Acute F41.8 Hyperhidrosis Acute R61 Hypercholesterolemia Acute E78.00 GERD (gastroesophageal reflux disease) Chronic K21.9 Chronic interstitial cystitis Acute N30.10 Sinusitis Acute J32.9 Asthma Chronic J45.909 Medical History Medical History Prolapse, intestine Rectal prolapse Female bladder prolapse Vaginal prolapse Severe anxiety with panic Restless legs Obesity Non-smoker Left ankle pain History of bulimia nervosa Family history of alpha 1 antitrypsin deficiency Bipolar disorder Antinuclear factor positive Surgical History Surgical History S/P placement of nerve stimulator in bladder also has spinal cord stimulator-total of 2 History of bladder surgery Bladder stimulator in situ History of ankle surgery x3 History of breast lift History of nasal septoplasty H/O laparoscopy History of right hip replacement History of dilatation and curettage x3 History of cholecystectomy History of section History of abdominoplasty History of hysterectomy Tobacco Smoking/Tobacco Use Status: Never Alcohol Alcohol Intake: current Alcohol intake frequency: holidays/special occasions only Substance Use Substance use: Never Substance use type: does not use Vital Signs and Lab Results Vital Signs Most Recent Vital Signs in EMR: Most Recent Vital Signs Temp Pulse Resp BP Pulse Ox 36.2 C L 77 16 149/93 H 99 09/01/24 09:34 09/01/24 09:34 09/01/24 09:34 09/01/24 09:34 09/01/24 09:34 Lab Results Blood Type / Crossmatch: No Data to Display Complete Blood Count: White Blood Count 8.20 10^3/uL (4.4-10.8) 08/03/24 15:30 Red Blood Count 4.93 10^6/uL (3.93-5.22) 08/03/24 15:30 Hemoglobin 14.3 g/dL (11.2-15.7) 08/03/24 15:30 Hematocrit 45.8 % (36.0-46.0) 08/03/24 15:30 Platelet Count 273 10^3/uL (130-400) 08/03/24 15:30 Complete Metabolic Panel: No Data to Display Liver Function Panel: No Data to Display Coagulation Panel: No Data to Display Cardiac Panel: No Data to Display Arterial Blood Gas: No Data to Display Venous Blood Gas: No Data to Display Pancreas Panel: No Data to Display Thyroid Panel: No Data to Display Infectious Disease: No Data to Display Blood Cultures: No Data to Display Toxicology Panel: No Data to Display Panel: No Data to Display Imaging and Studies Imaging and Studies Study information below may be from another EMR and interpreted by another provider. Please see original notes in EMR for more complete details. Pulmonary Function Summary: Date of service: 08/19/24 Time of Service: 11:02 Pulmonary Function Test Result Indications: Alpha 1 carrier Interpretation Spirometry: There is no baseline airflow limitation. There was a 26% decrease with administration of 4.0 mg/mL methacholine. Lung Volumes: There is air trapping. Diffusion Capacity: Mildly reduced diffusion Airway Pressure: Normal airways resistance. Impression Baseline air trapping and a slightly reduced diffusion. There is a positive methacholine challenge. Clinical Correlation therefore is recommended. Anesthesia Assessment and Plan Anesthesia History Personal History: No History of Anesthesia Complications Family History: No Family History of Anesthesia Complications Exercise Tolerance Exercise Tolerance: Metabolic Equivalents>4 Pertinent Negatives Pertinent Negatives: No Symptoms of GERD Cardiac & Pulmonary Exam Cardiac Exam: Normal S1/S2 Heart Sounds Pulmonary Exam: Clear Bilateral Breath Sounds Implantable Cardiac Device Does patient have a Pacemaker or an ICD?: No Airway Exam Known Difficult Airway: No Mallampati Class: 2 Mouth Opening: Normal (> 3cm) Thyromental Distance: Less than 3 cm Neck Range of Motion: Full ROM Neck Circumference: Normal Teeth Condition: Normal Dentition ASA Classification ASA Score: ASA 2 Emergency Case?: No NPO Status NPO Status: NPO Clears >2 hours, Solids >8 hours Status Status: History of Hysterectomy Anesthesia Plan Resuscitation Status: Full Code Anesthesia Technique: General Anesthesia Airway Planned: Endotracheal Tube Monitors Used: Standard Monitors
[2024-09-01] MEDS: ceFAZolin 2 GM/50 ML BAG IVPB (13:59)
[2024-09-01] MEDS: TRANEXAMIC ACID/SOD. CHL. 1,000 MG/100 ML BAG 600 MG IVPB (14:10)
[2024-09-01] MEDS: Bupivacaine 0.25% Pres-Free W/EPI 30 ML VIAL (14:47)
[2024-09-01] MEDS: EPINEPHrine 10 MG/10 ML ML (15:04)
--- NOTE | 2024-09-01 15:08 | DI.RAD_ITS ---
Exam(s) XR HIP RT IN OR EXAM: XR HIP RT IN OR CLINICAL HISTORY: Iliotibial band syndrome of right side TECHNIQUE: 2D and realtime digital imaging was performed. CONTRAST MATERIAL: Refer to procedure report. COMPARISON: CR XR HIP MIN 2V RT from 04/30/2024 FINDINGS: Fluoroscopy was provided for Dr. Duarte during the performance of a iliotibial band treatment. Plea se refer to the procedure report for complete details. Ka,r=1.1 mGy IMPRESSION: RADIATION DOSE DELIVERED: 0.0 0.0 0
[2024-09-01] MEDS: fentaNYL 100 MCG/2 ML VIAL IVP ×2 (15:41→15:52)
[2024-09-01] MEDS: HYDROmorphone 1 MG/ML SYR IVP (16:08)
--- NOTE | 2024-09-01 16:27 | W.ANESPOSTOP ---
Postoperative Evaluation Date, Time and Location Date Performed: 09/01/24 Time Performed: 16:29 Patient Location: PACU Vital Signs Most Recent Imported Vital Signs: Most Recent Vital Signs Temp Pulse Resp BP Pulse Ox 36.4 C L 65 13 151/90 H 98 09/01/24 16:11 09/01/24 16:15 09/01/24 16:15 09/01/24 16:15 09/01/24 16:15 Pain Score Most Recent Pain Score: Most Recent Pain Score Pain Level 09/01/24 15:57 Assessment Mental Status: Awake (Alert & Oriented to Patient Baseline) Airway and Respiratory Function: Patent airway with normal (patient baseline) respiratory exam Cardiovascular Function: Hemodynamically Stable Hydration Status: Adequately Hydrated Nausea & Vomiting: No Nausea or Vomiting Pain: Pain is tolerable per patient (04/18 ) Peripheral Nerve Block: Patient did not receive a nerve block Teaching Patient Teaching: Discussed Safe Use of Pain Medication Given Recent Anesthesia
[2024-09-01] MEDS: Omeprazole 20 MG CAPCR 40 MG PO (16:45)
[2024-09-01] MEDS: oxyCODONE 5 MG TAB PO (17:09)
== END 2024-09-01 18:14 | disposition home or self-care (01) ==
LOC: SUR 08:52
PROVIDERS: PCP Physician Assistant Medical; Visit Provider Student in an Organized Health Care Education/Training Program
PROC: (CPT 29863; principal; 2024-09-01 11:15)
DX: M76.31 Iliotibial band syndrome, right leg (principal); M70.61 Trochanteric bursitis, right hip
CPT/HCPCS: 20680; 27062; 27305; 73501; J0131; J0690; J1100; J1171; J2250; J2405; J2704; J3010; J3475

== ENCOUNTER → 2024-09-14 13:07 | Outpatient (BNVA) | payer MEDICARE, OTHER, SELFPAY | PROVIDERS: PCP Physician Assistant Medical; Referring Provider Physician Assistant Medical; Visit Provider Student in an Organized Health Care Education/Training Program | DX: Z47.89 Encounter for other orthopedic aftercare (principal); M76.31 Iliotibial band syndrome, right leg; G89.29 Other chronic pain | CPT/HCPCS: 99024 ==

== ENCOUNTER → 2024-10-13 09:07 | Outpatient (BNVA) | payer MEDICARE, OTHER, SELFPAY | PROVIDERS: PCP Physician Assistant Medical; Referring Provider Physician Assistant Medical; Visit Provider Student in an Organized Health Care Education/Training Program | DX: G89.29 Other chronic pain (principal); Z96.641 Presence of right artificial hip joint; T84.020A Dislocation of internal right hip prosthesis, initial encounter; M76.31 Iliotibial band syndrome, right leg | CPT/HCPCS: 99214 ==

== ENCOUNTER 2024-11-14 03:50 | Outpatient (CLI) | payer MEDICARE, OTHER, SELFPAY ==
[2024-11-14 10:49] LABS: HCT 37.8 % (36.0-46.0); HGB 11.9 g/dL (11.2-15.7); MCH 29.9 pg (27.0-33.0); MCHC 31.5 % (32.0-36.0); MCV 95 fL (80-95); MPV 10.2 fL (8.0-11.0); Platelet Count 362 10^3/uL (130-400); RBC 3.98 10^6/uL (3.93-5.22); RDW 14.5 % (11.7-14.6); RDW-SD 49.2 fL; WBC 10.19 10^3/uL (4.4-10.8)
[2024-11-14 11:37] LABS: Anion Gap 7.3 mmol/L (3-11); BUN 20 mg/dL (7-18); CO2 28.7 mmol/L (21.0-32.0); CREATININE 0.8 mg/dL (0.55-1.02); Calcium 9.3 mg/dL (8.5-10.1); Chloride 107 mmol/L (98-107); Estimated GFR 92.54 (mL/min/1.73m2); Glucose 91 mg/dL (74-106); Potassium 4.4 mmol/L (3.5-5.1); Sodium 143 mmol/L (136-145)
== END 2024-11-14 03:51 | disposition home or self-care (01) ==
LOC: LBO 03:52
PROVIDERS: PCP Physician Assistant Medical; Visit Provider Student in an Organized Health Care Education/Training Program
DX: T84.020A Dislocation of internal right hip prosthesis, initial encounter (principal); Z01.818 Encounter for other preprocedural examination
CPT/HCPCS: 36415; 80048; 85027

== ENCOUNTER 2024-11-30 06:00 | Inpatient (IN) | payer MEDICARE, OTHER, SELFPAY ==
[2024-11-30] VITALS (43 sets, daily range): BP systolic 99–132; BP diastolic 56–90; PULSE 57–84; RESP 11–32; TEMP 36–37.1; O2SAT 95–100; BMI 32.1
--- NOTE | 2024-11-30 09:16 | W.ANESPRE ---
General Info Date of Service Date Performed: 11/30/24 Height: 5 ft Weight: 74.5 kg Body Mass Index (BMI): 32.1 Surgical Procedure: Operation Date: 11/30/24 11:25 Proposed Procedure Side Surgeon p Hip Total Hip Revision Right Cristian Erickson MD Meds Allergies and Home Medications Allergies Allergy/AdvReac Type Severity Reaction Status Date / Time animal dander Allergy Other (See Verified 11/30/24 08:55 Comment) house dust Allergy Other (See Verified 11/30/24 08:55 Comment) phenazopyridine Allergy Other (See Verified 11/30/24 08:55 Comment) Sulfa (Sulfonamide AdvReac Unknown nausea and Verified 11/30/24 08:55 Antibiotics) vomiting Home Medication ?Medication ?Instructions ?Recorded bupropion HCl 300 mg 24 hr tablet, 300 mg PO DAILY 12/10/22 extended release (Wellbutrin XL) ibuprofen 200 mg tablet 200 mg PO Q6H PRN 12/10/22 lamotrigine 25 mg tablet (Lamictal) 50 mg PO DAILY 12/10/22 ondansetron 8 mg disintegrating 8 mg PO DAILY 12/10/22 tablet sertraline 100 mg tablet 100 mg PO DAILY 12/10/22 fluticasone propionate 50 2 spray intranasal DAILY 30 days 12/23/22 mcg/actuation nasal #16 grams spray,suspension (Flonase Allergy Relief) clotrimazole 1 % topical cream 1 applic topical TID 03/17/23 albuterol sulfate 90 mcg/actuation 2 puff inhalation Q4H PRN 04/09/23 aerosol inhaler (ProAir HFA) shortness of breath or wheezing #8.5 grams fluticasone propionate 230 2 puff inhalation BID #12 grams 04/09/23 mcg-salmeterol 21 mcg/actuation HFA inhaler (Advair HFA) methenamine hippurate 1 gram 1 g PO BID 07/07/24 tablet (Hiprex) mirabegron 25 mg tablet,extended 25 mg PO DAILY 07/07/24 release 24 hr (Myrbetriq) omeprazole 40 mg capsule,delayed 40 mg PO DAILY 07/07/24 release dupilumab 300 mg/2 mL subcutaneous 300 mg (2 mL) subcut Q2W #4 mL 08/04/24 pen injector (Dupixent) naproxen 250 mg tablet 250 - 500 mg (1 - 2 x 250 mg) PO 09/01/24 BID PRN Moderate pain #40 tabs albuterol sulfate 2.5 mg/3 mL 2.5 mg inhalation Q6H PRN 11/03/24 (0.083 %) solution for nebulization cyclobenzaprine 5 mg tablet 5 mg PO DAILY PRN 11/03/24 meloxicam 15 mg tablet 15 mg PO DAILY 11/03/24 ropinirole 8 mg tablet,extended 4 mg PO DAILY 11/03/24 release 24 hr acyclovir 400 mg tablet mg 11/30/24 Current Visit Medications: Current Medications Generic Name Dose Route Start Last Admin Trade Name Freq PRN Reason Stop Dose Admin Acetaminophen 1,000 mg 11/30/24 06:00 Acetaminophen 500 Mg Tab PO 11/30/24 23:59 PREOP [facility] Acetaminophen 1,000 mg 11/30/24 08:30 Acetaminophen 500 Mg Tab PO TID SARA Albuterol Sulfate 2.5 mg 11/30/24 07:43 Albuterol 2.5 Mg/3 Ml Inh Soln Vial IH Q6H PRN Albuterol Sulfate 2 puff 11/30/24 07:43 Albuterol Hfa 8 Gm 60 Puff Inh IH Q4H PRN shortness of breath or wheezing Aspirin 81 mg 11/30/24 08:30 Aspirin E.C. 81 Mg Tabec PO BID [facility] Celecoxib 400 mg 11/30/24 06:00 Celecoxib 200 Mg Cap PO 11/30/24 23:59 PREOP [facility] Device 1 each 11/30/24 07:43 Inhaler, Assist Device DIRECTED [facility] Dexamethasone 4 mg 11/30/24 08:30 Dexamethasone 4 Mg Tab PO 12/01/24 08:31 DAILY [facility] Docusate Sodium 100 mg 11/30/24 07:40 Docusate Sodium 100 Mg Cap PO BID PRN PRN Constipation Fluticasone Propionate gm 11/30/24 08:30 Fluticasone Nasal [place] 16 Gm Btl NS DAILY [facility] Hydromorphone HCl 0.5 mg 11/30/24 07:40 Hydromorphone 2 Mg/Ml Syr IVP Q2H PRN PRN Ringer's Solution 1,000 mls @ 80 mls/hr 11/30/24 06:00 IV 11/30/24 23:59 INFUSION SARA Cefazolin Sodium/Dextrose 2 gm in 50 mls @ 100 mls/hr 11/30/24 06:00 Ancef Duplex IVPB 11/30/24 23:59 PREOP SARA Tranexamic Acid/Sodium Chloride 1,000 mg in 100 mls @ 600 mls/hr 11/30/24 06:00 IVPB 11/30/24 23:59 PREOP SARA Cefazolin Sodium/Dextrose 1 gm in 50 mls @ 100 mls/hr 11/30/24 08:00 Ancef Duplex IVPB 12/01/24 00:29 Q8H SARA IV Miscellaneous Supplies 1 each 11/30/24 06:00 Iv Access IV 11/30/24 23:59 DIRECTED SARA Lamotrigine 50 mg 11/30/24 08:30 Lamotrigine 25 Mg Tab PO DAILY [facility] Meloxicam 15 mg 11/30/24 08:30 Meloxicam 15 Mg Tab PO DAILY [facility] Mirabegron 25 mg 11/30/24 08:30 Mirabegron 25 Mg Tabcr PO DAILY [facility] Non-Formulary Medication 300 mg 11/30/24 08:30 Bupropion Hcl [Wellbutrin Xl] PO DAILY [facility] Non-Formulary Medication 5 mg 11/30/24 07:43 Cyclobenzaprine PO DAILY PRN Non-Formulary Medication 2 puff 11/30/24 08:30 Fluticasone Propion-Salmeterol [Advair Hfa] IH BID [facility] Non-Formulary Medication 1 gm 11/30/24 08:30 Methenamine Hippurate [Hiprex] PO BID [facility] Non-Formulary Medication 40 mg 11/30/24 08:30 Omeprazole PO DAILY [facility] Non-Formulary Medication 8 mg 11/30/24 08:30 Ondansetron PO DAILY [facility] Non-Formulary Medication 4 mg 11/30/24 08:30 Ropinirole PO DAILY [facility] Ondansetron HCl 4 mg 11/30/24 07:40 Ondansetron 4 Mg/2 Ml Vial IVP Q6H PRN PRN Nausea Oxycodone HCl 0 mg 11/30/24 07:40 Oxycodone 5 Mg Tab PO Q3H PRN PRN Pain Polyethylene Glycol 17 gm 11/30/24 07:40 Polyethylene Glycol 3350 17 Gm Packet PO BID PRN PRN Constipation Sertraline HCl 100 mg 11/30/24 08:30 Sertraline 100 Mg Tab PO DAILY SARA Sodium Chloride 0 ml 11/30/24 06:00 Normal Saline Flush 10 Ml Syr IV 11/30/24 23:59 PRN PRN Sodium Chloride 0 ml 11/30/24 06:00 Normal Saline 10 Ml Vial IJ 11/30/24 23:59 DIRECTED PRN Sterile Water 0 ml 11/30/24 06:00 Water,Injection,Sterile 10 Ml Vial IJ 11/30/24 23:59 DIRECTED PRN PFSH Active Problems Active Problems: Problem Status Onset Code Other dysphagia Acute R13.19 Subluxation of prosthesis of right hip Acute T84.020A Iliotibial band syndrome of right side Acute M76.31 Trochanteric bursitis, right hip Acute M70.61 Chronic hip pain after total replacement of right hip joint Acute M25.551, G89.29, Z96.641 Alpha 1-antitrypsin PiMS phenotype Acute Z14.8 Hemoptysis Acute R04.2 Pulmonary nodule Acute R91.1 Spinal cord stimulator status Acute Z96.89 TMJ syndrome Acute M26.629 Mixed anxiety and depressive disorder Acute F41.8 Hyperhidrosis Acute R61 Hypercholesterolemia Acute E78.00 GERD (gastroesophageal reflux disease) Chronic K21.9 Chronic interstitial cystitis Acute N30.10 Sinusitis Acute J32.9 Asthma Chronic J45.909 Medical History Medical History (Updated 11/30/24 @ 09:46 by Rafael Lanza CRNA) Bipolar 1 disorder Throat symptom Streptococcus pharyngitis Sore throat Right hip pain Recurrent cold sores Elevated antinuclear antibody (JUSTA) level Oral thrush History of iron deficiency Hip pain History of gastric ulcer Acute asthmatic bronchitis Prolapse, intestine Rectal prolapse Female bladder prolapse Vaginal prolapse Severe anxiety with panic Restless legs Obesity Non-smoker Left ankle pain History of bulimia nervosa Family history of alpha 1 antitrypsin deficiency Bipolar disorder Antinuclear factor positive Surgical History Surgical History History of liposuction of abdomen History of bronchoscopy 03/09/2023 S/P placement of nerve stimulator in bladder also has spinal cord stimulator-total of 2 Per pt. states they are both right now-11/29/24 History of bladder surgery Bladder stimulator in situ repair of vaginal, rectal and bladder prolapse History of ankle surgery x3 History of breast lift History of nasal septoplasty H/O laparoscopy History of right hip replacement History of dilatation and curettage x3 History of cholecystectomy History of section History of abdominoplasty History of hysterectomy Tobacco Smoking/Tobacco Use Status: Never Alcohol Alcohol Intake: current Alcohol intake frequency: holidays/special occasions only Alcohol type: beer Substance Use Substance use: Never Substance use type: does not use Vital Signs and Lab Results Vital Signs Most Recent Vital Signs in EMR: Most Recent Vital Signs Temp Pulse Resp BP Pulse Ox 37.1 C 84 16 132/90 96 11/30/24 08:32 11/30/24 08:32 11/30/24 08:32 11/30/24 08:32 11/30/24 08:32 Lab Results Blood Type / Crossmatch: No Data to Display Complete Blood Count: White Blood Count 10.19 10^3/uL (4.4-10.8) 11/14/24 10:45 Red Blood Count 3.98 10^6/uL (3.93-5.22) 11/14/24 10:45 Hemoglobin 11.9 g/dL (11.2-15.7) 11/14/24 10:45 Hematocrit 37.8 % (36.0-46.0) 11/14/24 10:45 Platelet Count 362 10^3/uL (130-400) 11/14/24 10:45 Complete Metabolic Panel: Sodium 143 mmol/L (136-145) 11/14/24 10:45 Potassium 4.4 mmol/L (3.5-5.1) 11/14/24 10:45 Chloride 107 mmol/L (98-107) 11/14/24 10:45 Carbon Dioxide 28.7 mmol/L (21.0-32.0) 11/14/24 10:45 BUN 20 mg/dL (7-18) H 11/14/24 10:45 Creatinine 0.8 mg/dL (0.55-1.02) 11/14/24 10:45 Est GFR (CKD-EPI 2020) 92.54 (mL/min/1.73m2) 11/14/24 10:45 Calcium 9.3 mg/dL (8.5-10.1) 11/14/24 10:45 Glucose 91 mg/dL (74-106) 11/14/24 10:45 Liver Function Panel: No Data to Display Coagulation Panel: No Data to Display Cardiac Panel: No Data to Display Arterial Blood Gas: No Data to Display Venous Blood Gas: No Data to Display Pancreas Panel: No Data to Display Thyroid Panel: No Data to Display Infectious Disease: No Data to Display Blood Cultures: No Data to Display Toxicology Panel: No Data to Display Panel: No Data to Display Imaging and Studies Imaging and Studies Study information below may be from another EMR and interpreted by another provider. Please see original notes in EMR for more complete details. Pulmonary Function Summary: Date of service: 08/19/24 Time of Service: 11:02 Pulmonary Function Test Result Indications: Alpha 1 carrier Interpretation Spirometry: There is no baseline airflow limitation. There was a 26% decrease with administration of 4.0 mg/mL methacholine. Lung Volumes: There is air trapping. Diffusion Capacity: Mildly reduced diffusion Airway Pressure: Normal airways resistance. Impression Baseline air trapping and a slightly reduced diffusion. There is a positive methacholine challenge. Clinical Correlation therefore is recommended. Anesthesia Assessment and Plan Anesthesia History Personal History: No History of Anesthesia Complications Family History: No Family History of Anesthesia Complications Exercise Tolerance Exercise Tolerance: Metabolic Equivalents>4 Pertinent Negatives Pertinent Negatives: No Symptoms of GERD Cardiac & Pulmonary Exam Cardiac Exam: Normal S1/S2 Heart Sounds Pulmonary Exam: Clear Bilateral Breath Sounds Implantable Cardiac Device Does patient have a Pacemaker or an ICD?: No Airway Exam Known Difficult Airway: No Mallampati Class: 2 Mouth Opening: Normal (> 3cm) Thyromental Distance: Less than 3 cm Neck Range of Motion: Full ROM Neck Circumference: Normal Teeth Condition: Normal Dentition ASA Classification ASA Score: ASA 2 Emergency Case?: No NPO Status NPO Status: NPO Clears >2 hours, Solids >8 hours Status Status: History of Hysterectomy Anesthesia Plan Resuscitation Status: Full Code Anesthesia Technique: General Anesthesia Airway Planned: Endotracheal Tube Monitors Used: Standard Monitors
[2024-11-30] MEDS: Acetaminophen 500 MG TAB 1000 MG PO ×3 (09:17→19:23)
[2024-11-30] MEDS: Celecoxib 200 MG CAP 400 MG PO (09:17)
[2024-11-30] MEDS: Lactated Ringers 1,000 ML 80 ML IV ×2 (09:39→15:19)
[2024-11-30] MEDS: ceFAZolin 2 GM/50 ML BAG IVPB (11:22)
[2024-11-30] MEDS: TRANEXAMIC ACID/SOD. CHL. 1,000 MG/100 ML BAG 600 MG IVPB (11:37)
--- NOTE | 2024-11-30 13:57 | DI.RAD_ITS ---
Exam(s) XR HIP RT IN OR EXAM: XR HIP RT IN OR CLINICAL HISTORY: SUBLUXATION OF RIGHT HIP PROSTHESIS. TECHNIQUE: 2D and realtime digital imaging was performed. COMPARISON: No exams were available for comparison FINDINGS: Hard copy images show placement of a right hip prosthesis. The alignment appears satisfactory. Please see procedure note for details. Fluoro time: 44.2seconds RADIATION DOSE DELIVERED: Ka,r=4.36 mGy
[2024-11-30] MEDS: fentaNYL 100 MCG/2 ML VIAL IVP (14:44)
[2024-11-30] MEDS: LORazepam 2 MG/ML VIAL 0.5 MG IVP (15:03)
--- NOTE | 2024-11-30 15:59 | PT.INIE ---
PT Notes Visit Reasons: subluxation of right EDWIN Physical Therapy Inpatient Initial Evaluation Date: 11/30/2024 Referring Doctor: CIERRA Gilmore PT Orders: PT CONSULT: S/P Ortho Surgery Precautions: Fall. Standard. WBAT on the R LE with AD. 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 PMHX: Medical History (Updated 11/03/24 @ 11:59 by Jessi Blair RN) Throat symptom Streptococcus pharyngitis Sore throat Right hip pain Recurrent cold sores Elevated antinuclear antibody (JUSTA) level Oral thrush History of iron deficiency Hip pain History of gastric ulcer Acute asthmatic bronchitis Prolapse, intestine Rectal prolapse Female bladder prolapse Vaginal prolapse Severe anxiety with panic Restless legs Obesity Non-smoker Left ankle pain History of bulimia nervosa Family history of alpha 1 antitrypsin deficiency Bipolar disorder Antinuclear factor positive Surgical History (Updated 11/03/24 @ 11:59 by Jessi Blair RN) History of liposuction of abdomen History of bronchoscopy 03/09/2023 S/P placement of nerve stimulator in bladder also has spinal cord stimulator-total of 2 History of bladder surgery Bladder stimulator in situ repair of vaginal, rectal and bladder prolapse History of ankle surgery x3 History of breast lift History of nasal septoplasty H/O laparoscopy History of right hip replacement History of dilatation and curettage x3 History of cholecystectomy History of section History of abdominoplasty History of hysterectomy Social History/Home Situation: Lives with in a priavte home with 5 steps to enter and another flight of steps to the bedroom with rail on one side. Independent with all aspects of ADLs prior to surgery although has had worsening ability to move due to pain from failed hardware. Equipment Owned/DME: None Subjective: Reported 7-8/10 pain in the R with rest a nd with movement but had pain medications given to her about half an hour before this PT came in to see her. Agreeable to walking to the toilet with walker with PT to void urine. denied headache, chest pain, and lightheadedness throughout session. Objective: General Observation: resting in supine. Mepilex Ag over surgical incision. TEDS in B legs. Mental Status: Somewaht sleepy but oriented as to person, place, time, and purpose. Able to pay attention, focus, and respond appropriately. Pain: As above Vital Signs: Closely moniored by nursing staff ROM: Right Lower Extremity: Hip flexion allows up to about 90-95 degrees. Hip abduction WFL. Knee flexion about 20 degrees to 90 degrees. Ankle dorsiflexion WFL. Ankle plantarflexion WFL. Left Lower Extremity: Hip flexion WFL. Hip abduction WFL. Knee flexion WFL. Ankle dorsiflexion WFL. Ankle plantarflexion WFL. Strength: Right Lower Extremity: Hip flexors 3-/5. Hip abductors 4-/5. Knee flexors 3-/5. Knee extensors 3-/5. Ankle dorsiflexors 3-/5. Ankle plantarflexors 4-/5. Left Lower Extremity: Hip flexors 4/5. Hip abductors 4/5. Knee flexors 4/5. Knee extensors 4/5. Ankle dorsiflexors 4/5. Ankle plantarflexors 4/5. Bed Mobility/Transfers: Minimal cueing provided for use of B hands as needed for support, movement sequence, AD management, and posture to reduce fall risk and minimize pain report Supine to sit minimal assist to R LE Sit to stand minimal assist using FWW Stand to sit minimal assist using FWW Bed to toilet seat with minimal assist using FWW Toilet seat to bed minimal assist using FWW Gait: Facilitated safe and correct performance of level surface ambulation covering a distance of 20 feet +20 feet using 5-year-old walker with step to gait pattern with report of 7?8/10 on the right requiring contact-guard assist and minimal verbal cueing for correct movement sequence, with prescription bottle walker, and posture to minimize pain reporting reduce fall risk. Stairs: Deferred today. Will perform in the next session Balance: Static Sitting: Good Dynamic Sitting: Fair Static Standing: Fair Dynamic Standing: Fair Special Tests: Mobility Limitations Standardized Measure [facility] AM-PAC 6 clicks Basic Mobility Inpatient Short Form: Raw Score: 18 CMS Score: 47% deficit Informed Consent/Education: Patient was instructed in purpose of PT consult and plan of care. Agreeable to proceed with established PT POC to achieve personal goals. Assessment: Patient requires the use of a front wheeled walker and assistance of 1 person for short distance ambulation using a step to gait pattern with performance limited by pain level and postoperative status. Patient presents with clinical signs and symptoms consistent with current/admitting diagnoses that have resulted to mobility limitations, gait instability, generalized weakness, and overall ADL decline as demonstrated by the following impairment level findings: 1. Decreased strength to R hip major muscle groups 2. Impaired standing balance 3. Impaired activity tolerance 4. Limitation of joint range of motion in R hip 5. Pain level at 7-8/10 in the R hip Impairments are contributing to the following functional limitations: 1. Decline in bed mobility skills 2. Decline in transfer skills 3. Difficulty with ambulation without assistive device and physical assistance 4. Increased completion time for mobility ADL performance 5. Increased risk for falls 6. Difficulty with managing steps alone safely Patient is assessed as a 06203 moderate complexity based on the following: History: 44-year-old female with past medical history as indicated above Examination: Demonstrable impairment in strength, balance, and mobility level with underlying impairments and functional limitations as exhibited above as well as deficit score of 47% utilizing the [facility] Mobility Inpatient Short Form Presentation: Evolving Decision Makin moderate complexity Goals: Goals X1 week 1. Supine-Sit independent 2. Sit-Supine independent 3. Sit-Stand independent 4. Stand-Sit independent with FWW 5. Bed-Chair independent with FWW 6. Chair-Bed independent with FWW 7. Independent gait on level surface with use of FWW for at least 300 feet without report of pain nor dyspnea 8. Independent stair negotiation while holding onto B rails for at least 12 steps without report of pain nor dyspnea 9. Independent with home exercise program 10. Good static and dynamic standing balance/tolerance Plan of Care/Treatment Plan: 1-2x/day, 7 days/week x 1 week. Plan of care has been reviewed with the HOT BLASTER providing the service under Physical Therapy direction. Initiate Physical Therapy intervention for pain management as needed, strengthening, bed mobility, transfers, gait, stairs, balance training, and use of assistive device. DISCHARGE RECOMMENDATIONS: [] Home with no services [] [] Home with services [specify] [X] Home with outpatient PT. [] SNF for continued rehabilitation [] [] [facility] [] [] SNF versus LTC based on ability to participate and progress [] TREATMENT CODE/TIME: 51972 x 27 minutes for 1 unit (15:59?16:26). Thank you for the opportunity to participate in the care of this patient. Archana Michaels PT, DPT, CLT [facility] [place], [place]
[2024-11-30] MEDS: lamoTRIgine 25 MG TAB 50 MG PO (16:37)
[2024-11-30] MEDS: Sertraline 100 MG TAB PO (16:38)
[2024-11-30] MEDS: Fluticasone NASAL SPRAY 16 GM BTL NS (16:38)
--- NOTE | 2024-11-30 16:44 | ROE_ITS ---
Operative Note Operative Note PRE-OP DIAGNOSIS: Painful Right Hip Replacement POST-OP DIAGNOSIS: same PROCEDURE: Right hip revision, acetabular component and head exchange for do mobility construct with aggressive synovectomy and iliopsoas release SURGEON: Cristian Erickson SOLDERING MACHINE FEEDER: Helena Greene ANESTHESIA TYPE: General LMA/ETT Refer to Anesthesia Record ESTIMATED BLOOD LOSS: 600 PATHOLOGY: none sent TOURNIQUET TIME: 0 COMPLICATIONS: None Patient was transported to: PACU Patient's condition: stable Implants: 1. [employer] Redapt Acetabular Component, 56mm 2. [employer] Redapt Dual Mobility Shell, [id number] 3. [employer] Redapt Dual Mobility Liner, [id number] 4. Sheridan/Biomet Ceramic Head with Revision Sleeve, Size 28+0mm Indications: I have seen Belia in clinic for complaints of anterior groin pain after right hip replacement. She reports send sensations of instability which were also reproduced at the time of lateral hip endoscopy by Dr. Duarte. Given these findings of ongoing anterior groin pain I had offered revision arthroplasty about the right hip, acetabular component. Please see the previous office note for complete detailed history. I reviewed the risk of the procedure to include bleeding, infection, pain, stiffness, instability, damage nerves and vessels, damage to muscle tendons, need for PE procedures, blood clot, leg length inequality. Despite these risk, she elects to proceed. Findings: There was dense synovitis and scarring seen within the hip. This in case the femoral head and was quite dense throughout the entirety of the hip itself. This was debrided aggressively. There is no signs of purulence or suspicious lesions. The previous acetabular component was in a significantly anteverted position and seem to be quite large for her acetabulum. The component and ring through release exposed out of the superior acetabulum and the posterior acetabulum. The acetabular component was removed although it was well-fixed. A new mobility construct was placed in a slightly less anteverted position. The iliopsoas was released. Procedure Description: Cassia was greeted in the preoperative holding area where the correct side was identified and marked. The consent was reviewed with the patient and signed. The history and physical was updated. All questions were answered. She was taken back to the operating room. A general anesthetic was then administered. The feet were wrapped with cast padding and Coban and then placed into the boot liners and then into the boots. Care was taken to protect the skin and make sure the heels were fully down and the boots were stable. The patient was then positioned onto the HANA table. Both legs were held in a neutral position. SCDs were applied. The patient was then slid down onto a peroneal post. Prophylactic antibiotics in the form of Cefazolin were administered. 1g of Tranxemic Acid was given intravenously within 30 minutes of incision. The right leg was then prepped with Chloraprep and draped in a standard fashion. A second prep with Chloraprep was performed prior to placement of a shower-curtain type drape with Iodine impregnated skin protection. A timeout to confirm correct identity, side and site, procedure, allergies, anesthesia, and medical concerns was performed. An obliquely oriented incision was made starting lateral to the ASIS and running distal over the Tensor Fascia Lucille (TFL) muscle belly toward the fibular head, approximately 10cm. The skin and soft tissue was dissected sharply, through Bertin?s fascia, and to the fascia of the TFL. With the fascia and superior b order of the IT band identified, the fascia was incised with a new knife just above any perforators from the IT band. The TFL muscle belly was bluntly dissected away from the fascia and moved laterally. The fat between TFL and rectus was identified to ensure the dissection was not within the TFL. Blunt dissection created space between abductors and the capsule and retractor was placed over the lateral femoral neck. The fibers of the rectus femoris tendon were identified and these were freed from the anterior capsule. A second cobra retractor was placed around the medial femoral neck. The TFL was further retracted laterally to show the deep fascia. Careful dissection through this layer identified three main crossing vessels of the lateral femoral circumflex. These were cauterized in multiple locations and then cut without any noticeable bleeding. The TFL was further released bluntly from the deep fascia to expose anterior hip capsule and fat The Kain orthopaedic retractor was then placed beneath the TFL and against sartorius and medial soft tissues to protect and retract the soft tissues. A T-capsulotomy was then performed starting at the superior lateral acetabulum and moving distally to the intertrochanteric ridge. These capsular flaps were tagged with a No. 1 Ethibond and elevated from within. There was significant amount of synovitis and scarring seen within the hip. A thickened layer of synovitis was seen encasing the femoral component as well as the femoral head. These capsular flaps were released all the way to the greater trochanter and around towards the lesser trochanter. However, he was difficult to fully release these given how tense the tissue was. Therefore, I used a bone tamp to remove the femoral head. This gave better access to the hip itself. An aggressive synovectomy was performed. I continue to release adhesions and scar tissue from within the hip. This was also taken up over the acetabular component such that was able to see the entirety of the acetabular component. Interestingly, there is minimal bone adjacent to the superior aspect of the acetabular bone or posteriorly. There also seem to be a small area anteriorly which had a loss of bone with some bony overgrowth seen adjacent to this. The cup did not appear to be grossly loose. Utilizing an osteotome I removed the previous acetabular polyethylene. There we re 2 screws that which were removed without difficulty. The cup did not appear to be loose at this time. With adequate visualization of the entirety of the acetabular component rim I then proceeded to utilize a acetabular shell removal device by [employer]. Starting with small blade I impacted this around the edge of the cup and then worked it from anterior to posterior in both directions, circumferentially moving around the cup. This was slightly challenging given the excessive anteversion of the cup. However, is able to proceed to the longer blade and once again work this around the cup as well. Despite this, the acetabular component was difficult to remove. Knowing that I had released the majority of the cup I placed the handle into the center of the cup and move this around which was able to free up any other adhesions. The acetabular component was removed from the hip with some bone loss centrally. There is some fibrous ingrowth over the superior?anterior aspect which corresponded to a defect in the anterior wall. There was minimal bone left. There was a defect in the inner table with retroperitoneal tissue seen deep to this. There was areas of dense bone but also some areas of bone loss. I then proceeded with reaming this quite carefully. I held the reamer and the desired position and ran this from 50 mm to 55 mm. At 55 mm I had contact with the superior bone stock as well as the inferior bone stock since I was unable to utilize any anterior posterior wang and was reluctant to move much more medial given the defect of the inner table already. A 56 mm [employer] Redapt cup was then selected. A portion of the vanessa- articular cocktail was then injected around the acetabulum into the capsule and periosteum. This cocktail consisted of 123mg of Ropivacaine, 0.25mg of Epinephrine, 0.04mg of Clonidine, and 15mg of Ketorolac, diluted to 50cc. The cup was then inserted. It was carefully positioned and light mallet blows were used to seated. This seemed to have some provisional hold within the bone. X- rays utilized to make sure that we had appropriate positioning and there was no signs of fracture. I then used a ball-tipped pusher to impacted the rest the way seating against the bone superiorly and inferiorly. The seem to have good stability. Nevertheless, I proceeded with screw placement. I placed 3 cortical screws superiorly which each had excellent fixation, 1 being bicortical. I then placed a fourth screw inferiorly which also had excellent fixation. The [employer] dual mobility liner was then placed. The proximal femur was fully exposed so I could access the tip of the femoral neck. A trial dual ability construct was then inserted. This was reduced and showed excellent stability. This was tested with hip and maximal flexion internal rotation as well as maximal external rotation and extension. There is some mild shock but at no point was the hip unstable. The trial components were then removed. The soft tissues around the hip were once again injected with the periarticular cocktail. Iliopsoas was also released by maximally externally rotated the leg and releasing off of the lesser trochanter directly. It was slightly inflamed and quite tight. On the back table the deformity construct was prepared by inserting the 28 mm ceramic head with a +0 mm revision liner into the 44 x 28 dual mobility polyethy harini. With this completed this to mobility head construct was placed onto the clean and dried trunnion. It was impacted into position. The hip was reduced without difficulty. The anterior capsule was reapproximated with #1 Vicryl. Final x-ray images were obtained with fluoroscopy to confirm adequate positioning and no intraoperative fracture. The deep tissues were thoroughly irrigated with Surgiphor, betadine solution. This was allowed to sit in the wound for 3 minutes before being thoroughly irrigated out with normal saline. The capsule was then reapproximated with the previously placed Ethibond sutures. The TFL fascia was finally closed with a No. 2 Stratafix, barbed suture. Deep tissues were then reapproximated with 0 Vicryl and a running 2-0 Vicryl. The skin was closed with a running 4-0 Monocryl in a subcuticular fashion. This was reinforced with skin glue. A Mepilex silver dressing was applied. At the end of the case, all counts were correct. Cassia was transferred to the hospital bed without difficulty and suffering no significant complication identified except for some higher than usual blood loss although she remained stable.. She has a good prognosis. Physical therapy will start today and without restrictions, weight-bearing as tolerated. Aspirin 81mg BID will be used for DVT prophylaxis. Date of Procedure: 11/30/24
[2024-11-30] MEDS: ceFAZolin 1 GM/50 ML BAG IVPB (18:25)
[2024-11-30] MEDS: oxyCODONE 5 MG TAB PO ×2 (18:32→23:08)
[2024-11-30] MEDS: Celecoxib 200 MG CAP PO (19:23)
[2024-11-30] MEDS: HYDROmorphone 2 MG/ML SYR 0.5 MG IVP (19:23)
[2024-11-30] MEDS: Aspirin E.C. 81 MG TABEC PO (19:23)
[2024-11-30] MEDS: Ondansetron 4 MG/2 ML VIAL IVP (19:28)
[2024-11-30] MEDS: Budesonide/Formoterol 160/4.5 6 GM 60 PUFF INH IH (20:53)
[2024-12-01] MEDS: ceFAZolin 1 GM/50 ML BAG IVPB ×2 (02:12→10:00)
[2024-12-01] MEDS: Normal Saline Flush 10 ML SYR ×2 (02:32→04:19)
[2024-12-01 02:34] VITALS: BP 121/79; PULSE 80; RESP 16; TEMP 36.3; O2SAT 98
[2024-12-01] MEDS: oxyCODONE 5 MG TAB PO ×2 (03:03→08:48)
[2024-12-01] MEDS: Ondansetron 4 MG/2 ML VIAL IVP (04:05)
[2024-12-01] MEDS: HYDROmorphone 2 MG/ML SYR 0.5 MG IVP (04:05)
[2024-12-01 07:33] VITALS: BP 126/80; PULSE 74; RESP 18; TEMP 36.6; O2SAT 98
--- NOTE | 2024-12-01 08:12 | DSE_ITS ---
Date of service: 12/01/24 Time of Service: 08:12 Discharge Plan Disposition Patient Disposition: Home Condition: Good Discharge Details Reason For Visit: Subluxation of right EDWIN Admit Date/Time: 11/30/24 06:00 Admit Provider: Cristian Erickson Attending Provider: Cristian Erickson Primary Care Provider: Dulce Bowman Hospital Course Hospital Course: Patient was admitted to the medical/surgical floor following the procedure. The surgery was tolerated well without any notable medical, surgical, or anesthetic complications. Mobilization began postoperatively. She was voiding spontaneously. Vitals were stable. Physical therapy worked with the patient and was cleared for discharge home. No acute medical issues. Pain was controlled on oral regimen. Home Meds and New Rx's Prescriptions: New celecoxib [Celebrex] 200 mg capsule 200 mg PO BID PRNQty: 60 0RF Rx Instructions: Take one tablet twice daily for pain and inflammation aspirin 81 mg tablet,delayed release (DR/EC) 81 mg PO BID 30 Days Qty: 60 0RF acetaminophen 500 mg tablet 1,000 mg PO Q8H PRN Qty: 90 0RF Rx Instructions: Take two tablets up to every 8 hours as needed for pain dexamethasone 4 mg tablet 4 mg PO DAILY Qty: 2 0RF Rx Instructions: Take one tablet once daily for two days docusate sodium [Colace] 100 mg capsule 100 mg PO BID Qty: 30 0RF oxycodone 5 mg tablet 5 mg PO Q6H PRNQty: 12 0RF Rx Instructions: Take one tablet up to every 6 hours as needed for severe postoperative pain Continued fluticasone propionate [Flonase Allergy Relief] 50 mcg/actuation spray,suspe nsion 2 spray intranasal DAILY 30 Days Qty: 16 3RF Rx Instructions: administer into each nostril fluticasone propion-salmeterol [Advair HFA] 230-21 mcg/actuation HFA aerosol inhaler 2 puff inhalation BID Qty: 12 12RF albuterol sulfate [ProAir HFA] 90 mcg/actuation HFA aerosol inhaler 2 puff inhalation Q4H PRN (Reason: shortness of breath or wheezing) Qty: 8.5 12RF Dupixent Pen 300 mg/2 mL pen injector 300 mg subcut Q2W Qty: 4 11RF Patient Comments: 09/01/24: pt has not started using this med. Javon GILL mirabegron [Myrbetriq] 25 mg tablet extended release 24 hr 25 mg PO DAILY methenamine hippurate [Hiprex] 1 gram tablet 1 g PO BID omeprazole 40 mg capsule,delayed release(DR/EC) 40 mg PO DAILY bupropion HCl [Wellbutrin XL] 300 mg tablet extended release 24 hr 300 mg PO DAILY lamotrigine [Lamictal] 25 mg tablet 50 mg PO DAILY ondansetron 8 mg tablet,disintegrating 8 mg PO DAILY sertraline 100 mg tablet 100 mg PO DAILY clotrimazole 1 % cream 1 applic topical TID albuterol sulfate 2.5 mg /3 mL (0.083 %) solution for nebulization 2.5 mg inhalation Q6H PRN cyclobenzaprine 5 mg tablet 5 mg PO DAILY PRN acyclovir 400 mg tablet Patient Comments: TAKE ONE TABLET BY MOUTH TWICE A DAY FOR 7 DAYS Discontinued ibuprofen 200 mg tablet 200 mg PO Q6H PRN meloxicam 15 mg tablet 15 mg PO DAILY naproxen 250 mg tablet 250 - 500 mg PO BID PRN (Reason: Moderate pain) Qty: 40 0RF No Action ropinirole 4 mg tablet extended release 24 hr 12 mg PO DAILY Patient Comments: TAKE THREE TABLETS BY MOUTH EVERY DAY Discharge Instructions Additional Instructions: Total Hip Revision Discharge Instructions Activity: The most important activity is to walk. You should try to take short walks a few times a day. You have no restrictions on movement or positioning, but do not try to force what you do. You will find some stiffness and weakness with hip flexion (lifting your knee). Do not try to strengthen this too early, continue to practice walking and stairs and this will come. - Outpatient physical therapy can be helpful to help return you to a normal gait and improve your flexibility and strength. This can start around 2 weeks. For some patients, it?s not necessary. Usually this is determined at the time of discharge or at the first post-operative visit. - You should wear the BELLE hose on both legs for 2 weeks. Dressing: Keep the surgical dressing in place for at least one week. After the first week it may be removed and replace with light gauze and tape or nothing. It may get wet after 3 days but avoid soaking the dressing. If it gets wet, just lightly pat dry. It is important to always keep some gauze between skin folds, especially when you are sitting. Spend some time with the wound exposed when you are lying flat as the incision does wrinkle onto itself. Medications: - You should take Tylenol and an anti-inflammatory Celebrex as your primary pain control medications. If the Celebrex is too expensive or not covered, please call the office for another alternative (Advil/Ibuprofen or Naproxen/Aleve). - You have been prescribed a stronger pain medication Oxycodone for breakthrough pain, take as needed as prescribed. - You take a stomach acid reduction agent Omeprazole at baseline - continue with this medication to help reduce stomach acid and reflux. - You have also been prescribed Decadron to help with post-operative nausea and pain. You will take this for two days starting tomorrow. - You will be taking Aspirin 81mg twice a day for DVT prevention unless instructed otherwise. - If you have constipation you should take Colace (which has been prescribed) or Miralax (which is available [id number]). It takes most people 3-4 days to have a bowel movement. Follow-up: 2 weeks If you have any acute concerns or questions, please do not hesitate to contact the office at [phone]. You may contact Dr. Erickson with any questions after hours through the hospital at [phone] or on his cell phone at [phone]. Referrals: Cristian Erickson MD [ [facility] STAFF PHYSICIAN] - Activity:: Activity as Tolerated Equipment/Supplies:: Walker Diet:: As Tolerated Discharge Orders Discharge Orders: Discharge Order (Routine); Ordered 12/01/24 Ordered By: Cristian Erickson DS: Summary Time Spent with Patient providing and/or coordinating discharge services: Less than 30 minutes Status at Discharge Functional status at discharge: uses cane/walker Overall status at discharge: patient is progressing back to baseline Mental Status: mental status grossly normal Speech and Movement: speech and movement normal Mood: congruent mood Affect: normal affect Quality:SDOH Health Related Social Needs: Health related social needs food insecurity (Z59.41), transportation insecurity (Z59.82), problems related to housing/economic circumstances (Z59.89), problems with daily activities (Z73.9), feeling lonely/isolated (Z60.8) Exam Narrative Exam Narrative: Sitting up in the hospital bed. No acute distress. Alert and orient x 3. Dressing about the right hip is clean dry and intact. No significant ecchymosis. Pain to palpation about the tissues of the right thigh. Able to actively flex the right and extend the right knee. Sensation intact to light touch to the femoral and the lateral femoral cutaneous nerve distributions. Psych Mental Status: mental status grossly normal Speech and Movement: speech and movement normal Mood: congruent mood Affect: normal affect DS: Data Vitals/I&O Vitals and I&O: Vital Signs Temperature 97.5 F L 11/30/24 15:38 Pulse 72 11/30/24 15:42 Pulse Rhythm Regular 11/30/24 08:32 Pulse 73 11/30/24 15:42 Respiratory Rate 14 11/30/24 15:42 Respiratory Depth Normal 11/30/24 08:32 Blood Pressure 126/73 11/30/24 15:42 Blood Pressure Mean 93 11/30/24 15:42 Pulse Oximetry 99 11/30/24 15:42 Respiratory End-tidal CO2 33 11/30/24 15:20 Oxygen Delivery Method Room Air 11/30/24 15:38 Oxygen Flow Rate 2 11/30/24 14:42 Pain Level 5 11/30/24 14:55 Intake & Output 11/29/24 11/30/24 11/30/24 23:59 11:59 23:59 Intake Total 150 / 1135.333 985.333 / 1135.333 Output Total 600 / 600 Balance 150 / 535.333 385.333 / 535.333 Weight 164 lb 3.91 oz Intake: IV 150 / 1135.333 985.333 / 1135.333 Output: Estimated Blood Loss 600 / 600 Other: Emesis Description None PFSH All Active Problems (Updated 11/30/24 @ 09:46 by Rafael Lanza CRNA) Other dysphagia (Acute) Subluxation of prosthesis of right hip (Acute) Iliotibial band syndrome of right side (Acute) Trochanteric bursitis, right hip (Acute) Chronic hip pain after total replacement of right hip joint (Acute) Alpha 1-antitrypsin PiMS phenotype (Acute) Hemoptysis (Acute) Pulmonary nodule (Acute) Spinal cord stimulator status (Acute) Still in place l3/l4 however is not working. TMJ syndrome (Acute) Does occasionally lock open, never been to ED for this. Mixed anxiety and depressive disorder (Acute) Hyperhidrosis (Acute) Hypercholesterolemia (Acute) GERD (gastroesophageal reflux disease) (Chronic) Chronic interstitial cystitis (Acute) Sinusitis (Acute) Asthma (Chronic) Medical History (Updated 11/30/24 @ 09:46 by Rafael Lanza CRNA) Bipolar 1 disorder Throat symptom Streptococcus pharyngitis Sore throat Right hip pain Recurrent cold sores Elevated antinuclear antibody (JUSTA) level Oral thrush History of iron deficiency Hip pain History of gastric ulcer Acute asthmatic bronchitis Prolapse, intestine Rectal prolapse Female bladder prolapse Vaginal prolapse Severe anxiety with panic Restless legs Obesity Non-smoker Left ankle pain History of bulimia nervosa Family history of alpha 1 antitrypsin deficiency Bipolar disorder Antinuclear factor positive Surgical History History of liposuction of abdomen History of bronchoscopy 03/09/2023 S/P placement of nerve stimulator in bladder also has spinal cord stimulator-total of 2 Per pt. states they are both right now-11/29/24 History of bladder surgery Bladder stimulator in situ repair of vaginal, rectal and bladder prolapse History of ankle surgery x3 History of breast lift History of nasal septoplasty H/O laparoscopy History of right hip replacement History of dilatation and curettage x3 History of cholecystectomy History of section History of abdominoplasty History of hysterectomy Family History Mother Elevated alpha fetoprotein levels in amniotic fluid Chronic obstructive lung disease Father Depression Heart disease Hypertension Diabetes Hypercholesterolemia Brother Kidney disease Social History Smoking/Tobacco Use Status: Never Smoking risk assessment performed?: Yes Alcohol Intake: current Alcohol Intake frequency: holidays/special occasions only Alcohol type: beer Drug use: Never Substance use type: does not use Housing: house Do you feel safe at home: Yes Do you feel safe in your relationship?: Yes Time Spent with Patient Time Spent with Patient: <45 minutes Time was spent: preparing to see the patient(eg.review tests), obtaining and/or reviewing separately otained hiistory and referring, communicating with other health urgent care technician
[2024-12-01] MEDS: Acetaminophen 500 MG TAB 1000 MG PO (08:23)
[2024-12-01] MEDS: buPROPion-XL 150 MG TABCR 300 MG PO (08:23)
[2024-12-01] MEDS: Mirabegron 25 MG TABCR PO (08:23)
[2024-12-01] MEDS: Celecoxib 200 MG CAP PO (08:23)
[2024-12-01] MEDS: lamoTRIgine 25 MG TAB 50 MG PO (08:23)
[2024-12-01] MEDS: Sertraline 100 MG TAB PO (08:23)
[2024-12-01] MEDS: Aspirin E.C. 81 MG TABEC PO (08:24)
[2024-12-01] MEDS: Dexamethasone 4 MG TAB PO (08:24)
[2024-12-01] MEDS: Omeprazole 20 MG CAPCR 40 MG PO (08:24)
[2024-12-01] MEDS: Fluticasone NASAL SPRAY 16 GM BTL NS (08:25)
[2024-12-01] MEDS: Budesonide/Formoterol 160/4.5 6 GM 60 PUFF INH IH (08:44)
--- NOTE | 2024-12-01 08:53 | PDOC.CMDIS ---
Date of service: 12/01/24 Time of Service: 08:54 LACE Index Scoring Tool Questions: Length of Stay (in days): 1 Was the patient admitted via the E.D.?: No E.D. Visits: 0 Answers: Total Score: 1 Risk of Readmission: Low Risk Care Management Discharge Plan Reason for Hospitalization: Right EDWIN subluxation Discharge Plan: Belia was discharged home prior to meeting with CM. Follow up with Dr. Erickson as planned, no new services were ordered. Transportation was arranged by pt. Patient/Family Education Needs: Discuss ask me three. SDOH Health Related Social Needs: Health related social needs food insecurity (Z59.41), transportation insecurity (Z59.82), problems related to housing/economic circumstances (Z59.89), problems with daily activities (Z73.9), feeling lonely/isolated (Z60.8) Referrals and interventions: helping finding foodbank, and more help at home.
--- NOTE | 2024-12-01 09:18 | PT.INTREAT ---
PT Notes Visit Reasons: Subluxation of right EDWIN Physical Therapy Inpatient Treatment Note Date: 12/01/2024 Precautions: Fall. Standard. WBAT on the R LE with AD. Subjective: Still reported pain but with decreased intensity compared to yesterday. 4-5/10 in th R hip and thigh with weight bearing. Objective: General Observation: Resting in supine. Mepilex Ag over surgical incision. TEDS in B legs. Mental Status: A and O x 4 Pain: As above Vital Signs: Closely monitored by nursing staff Bed Mobility/Transfers: Minimal cueing provided for use of B hands as needed for support, movement sequence, AD management, and posture to reduce fall risk and minimize pain report Supine to sit stand by assist using leg security program manager on R Sit to stand stand by assist using leg security program manager on R Stand to sit stand by assist using leg security program manager on R Bed to toilet seat with stand by assist using leg security program manager on R Toilet seat to bed stand by assist using leg security program manager on R Gait: Facilitated safe and correct performance of level surface ambulation covering a distance of 150 feet +150 feet using front-wheeled walker with step to gait pattern with report of 4-5/10 on the right, stand by assist and minimal verbal cueing for correct movement sequence, with prescription bottle walker, and posture to minimize pain reporting reduce fall risk. Stairs: Guided patient with safe and correct negotiation of 6 x 4-inch steps and 2 x 6-inch steps while holding onot B rails for support, stand by assist provided. Balance: Static Sitting: Good Dynamic Sitting: Fair Static Standing: Fair Dynamic Standing: Fair Assessment: Patient requires the use of a front wheeled walker and assistance of 1 person for short distance ambulation using a step to gait pattern with performance limited by pain level and postoperative status. Patient presents with clinical signs and symptoms consistent with current/admitting diagnoses that have resulted to mobility limitations, gait instability, generalized weakness, and overall ADL decline as demonstrated by the following impairment level findings: 1. Decreased strength to R hip major muscle groups 2. Impaired standing balance 3. Impaired activity tolerance 4. Limitation of joint range of motion in R hip 5. Pain level at 4-5/10 in the R hip Impairments are contributing to the following functional limitations: 1. Decline in bed mobility skills 2. Decline in transfer skills 3. Difficulty with ambulation without assistive device and physical assistance 4. Increased completion time for mobility ADL performance 5. Increased risk for falls 6. Difficulty with managing steps alone safely Plan of Care/Treatment Plan: 1-2x/day, 7 days/week x 1 week. Plan of care has been reviewed with the YARN EXAMINER providing the service under Physical Therapy direction. Initiate Physical Therapy intervention for pain management as needed, strengthening, bed mobility, transfers, gait, stairs, balance training, and use of assistive device. DISCHARGE RECOMMENDATIONS: [] Home with no services [] [] Home with services [specify] [X] Home with outpatient PT. [] SNF for continued rehabilitation [] [] [facility] [] [] SNF versus LTC based on ability to participate and progress [] TREATMENT CODE/TIME: 75135 x 40 minutes for 3 units (9:18?9:58).
== END 2024-12-01 12:06 | disposition home or self-care (01) | DRG 468 ==
LOC: PDS 08:31 → MS 15:57 → PDS 12-01 07:36 → MS 12-01 07:36
PROVIDERS: Admitting Provider Student in an Organized Health Care Education/Training Program; PCP Physician Assistant Medical; Visit Provider Student in an Organized Health Care Education/Training Program
PROC: 0SR904A Replacement of Right Hip Joint with Ceramic on Polyethylene Synthetic Substitute, Uncemented, Open Approach (ICD-10-PCS; CPT 27134; principal; 2024-11-30 11:15)
DX: T84.020A Dislocation of internal right hip prosthesis, initial encounter (principal); M65.851 Other synovitis and tenosynovitis, right thigh; T84.84XA Pain due to internal orthopedic prosthetic devices, implants and grafts, initial encounter; F41.0 Panic disorder [episodic paroxysmal anxiety]; Z87.11 Personal history of peptic ulcer disease; F31.9 Bipolar disorder, unspecified; G25.81 Restless legs syndrome; E66.9 Obesity, unspecified; E61.1 Iron deficiency; Z96.82 Presence of neurostimulator; Z68.32 Body mass index [BMI] 32.0-32.9, adult
CPT/HCPCS: 27134; 94640; 97110; 97162; 97530; 73501; 94664; C1776; J0690; J1100; J1171; J2060; J2250; J2405; J2704; J3010; J8540

== ENCOUNTER 2024-12-15 15:27 | Outpatient (CLI) | payer MEDICARE, OTHER, SELFPAY ==
--- NOTE | 2024-12-15 11:30 | DI.RAD_ITS ---
Exam(s) XR HIP RT COMPLETE AP PELVIS EXAM: XR HIP RT COMPLETE AP PELVIS INDICATION: F/U RIGHT HIP REVISION SURGERY. COMPARISON: CR XR HIP MIN 2V RT from 04/30/2024 XA XR HIP RT IN OR from 09/01/2024 XA XR HIP RT IN OR from 11/30/2024 TECHNIQUE: 2D digital imaging was performed. Two views. FINDINGS: Stable alignment of right hip prosthesis. Sacral stimulator device noted. Left hip joint space is maintained DATA REPOSITORY: RADIATION DOSE DELIVERED:
== END 2024-12-15 15:28 | disposition home or self-care (01) ==
LOC: DIORS 15:28
PROVIDERS: PCP Physician Assistant Medical; Referring Provider Physician Assistant Medical; Visit Provider Student in an Organized Health Care Education/Training Program
DX: T84.020A Dislocation of internal right hip prosthesis, initial encounter (principal); Z47.1 Aftercare following joint replacement surgery; Z96.641 Presence of right artificial hip joint
CPT/HCPCS: 99024; 73502

== ENCOUNTER 2025-01-11 02:34 | Outpatient (CLI) | payer MEDICARE, OTHER, SELFPAY ==
--- NOTE | 2025-01-11 08:00 | DI.CT_ITS ---
Exam(s) CT LOWER EXTREMITY RT WO EXAM: CT LOWER EXTREMITY RT WO CLINICAL HISTORY: rt hip PAIN, S/P REVISION R EDWIN-DOS 11/30/24,subluxation of prosthesis,. TECHNIQUE: Imaging Protocol: Axial computed tomography images with coronal and sagittal reformatted images were created and reviewed. CONTRAST MATERIAL: Noncontrast COMPARISON: CR XR HIP MIN 2V RT from 04/30/[address] LOWER EXTREMITY RT WO from 06/13/2024 XA XR HIP RT IN OR from 09/01/2024 XA XR HIP RT IN OR from 11/30/2024 CR XR HIP RT COMPLETE AP PELVIS from 12/15/2024 FINDINGS: Bones: There is a right total hip prosthesis in place. There is no evidence of fracture or dislocati on. No cellulitic or osteomyelitic changes are identified. No lytic or sclerotic lesions are identified. Joints: Right total hip prosthesis shows satisfactory alignment. No significant periarticular spurr ing. Soft Tissues: Edema in the soft tissues lateral to the hip consistent with post surgical changes. B attery pack in soft tissues of right gluteal region. IMPRESSION: Satisfactory alignment of right total hip prosthesis. RADIATION DOSE DELIVERED: Total DLP DATA REPOSITORY: All CT scans at this facility are submitted to the National Radiology Data Registry (NRDR) Dose Index Registry (DIR) with the [employer] (A[employer]). RADIATION OPTIMIZATION: All CT scans at this facility use at least one of these dose optimization te chniques: automated exposure control; mA and/or kV adjustment per patient size (includes targeted exa ms where dose is matched to clinical indication); or iterative reconstruction.
== END 2025-01-11 02:54 ==
PROVIDERS: PCP Physician Assistant Medical; Visit Provider Student in an Organized Health Care Education/Training Program
DX: T84.020A Dislocation of internal right hip prosthesis, initial encounter (principal); M25.551 Pain in right hip
CPT/HCPCS: 73700

== ENCOUNTER → 2025-01-12 09:15 | Outpatient (BNVA) | payer MEDICARE, OTHER, SELFPAY | PROVIDERS: PCP Physician Assistant Medical; Visit Provider Student in an Organized Health Care Education/Training Program | DX: Z47.1 Aftercare following joint replacement surgery (principal); Z96.641 Presence of right artificial hip joint; T84.020D Dislocation of internal right hip prosthesis, subsequent encounter | CPT/HCPCS: 99024 ==

== ENCOUNTER → 2025-02-23 10:50 | Outpatient (BNVA) | payer MEDICARE, OTHER, SELFPAY | PROVIDERS: PCP Physician Assistant Medical; Referring Provider Physician Assistant Medical; Visit Provider Student in an Organized Health Care Education/Training Program | DX: Z47.1 Aftercare following joint replacement surgery (principal); Z96.641 Presence of right artificial hip joint; T84.020A Dislocation of internal right hip prosthesis, initial encounter | CPT/HCPCS: 99024 ==